=== PATIENT | female | born 1935 | race Caucasian/White ===

== ENCOUNTER → 2017-07-07 | Day surgery (SDC) | payer OTHER ==
[2017-06-30 08:41] VITALS: Ht 157.5 cm; Wt 50.0 kg
[~2017-07-07] VITALS: Ht 157.5 cm; Wt 50.0 kg
[~2017-07-07] MED LIST: 500ML BSS 0.3ML EPI 1:1000PF IRRIG ONE; ACETAMINOPHEN 325 MG TAB PO PRN; AMVISC PLUS 0.8ML SYRINGE INT OCU ONE; ASPI81TA28 PO; ATROPINE SULFATE 0.1 MG/ML 5ML SYR IV PRN; AcetaZOLAMIDE 250 MG TAB PO SCH; BETAXOLOL HCL 0.25% OP SUSP PER DROP CHARGE OPL SCH; BRIMONIDINE TART 0.2% OP SOLN PER DROP CHARGE ONE; BSS FLUSH ONE; CALC1TAB9 PO; ENDOCOAT 0.85ML SYRINGE INT OCU ONE; EpHEDrine SULFATE INJ 50 MG/ML AMP IV PRN; EpINEphrine INJ 1MG/ML AMP 1 MG/ML AMP ONE; FSMD/70 PO; LIDOCAINE 4% OP SOLN DROP CHARGE ONE; LIDOCAINE 4% OP SOLN DROP CHARGE OPL SCH; LIDOCAINE HCL 1% MPF 2 ML VIAL ONE; LOSA50TA6 PO; MIDAZOLAM HCL 1 MG/ML 2ML VIAL ONE; MIX: 4ML BSS 1ML EPI 1:1000 PF INSTIL ONE; MOXIFLOXACIN OPH SOLN PER DROP CHARGE ONE; MULT-506 PO; OCUCOAT 1 ML SOLN IO ONE; POVIDONE-IODINE OP SOLN 30 ML BTL ONE; PROPARACAINE 0.5% OP SOLN PER DROP CHARGE OPL SCH; ROSU20TA PO; TOBRAMYCIN/DEXAMETHASONE OPH OINT PER APPLN CHARGE ONE
[2017-07-07] MEDS: LACTATED RINGER'S 1000ML 500 ML IV SCH ×2 (09:14→09:29)
[2017-07-07] MEDS: PHENYLEPHRINE HCL 2.5% OP SOLN PER DROP CHARGE OPL SCH ×2 (09:16→09:18)
[2017-07-07] MEDS: TROPICAMIDE 1% OP SOLN PER DROP CHARGE OPL SCH ×2 (09:16→09:21)
[2017-07-07] MEDS: MOXIFLOXACIN OPH SOLN PER DROP CHARGE OPL SCH ×2 (09:17→09:28)
[2017-07-07] MEDS: CYCLOPENTOLATE HCL 1% OP SOLN PER DROP CHARGE OPL SCH ×2 (09:17→09:22)
--- NOTE | 2017-07-07 09:49 | History & Physical Bridge - [place] ---
H&P Re-Evaluation Bridge Note: I have examined the patient, reviewed the History & Physical and in the interval since the performance of the History & Physical I have noted the following changes of clinical significance: No changes noted
--- NOTE | 2017-07-07 10:06 | Discharge Instructions-SurgCtr ---
Discharge Instructions Date of Service Jul 07, 2017. Visit Reason for Visit: Left Cataract Discharge Discharge Diagnosis / Problem: lens implant left eye Discharge Goals Goal(s): Improve function Activity Recommendations Activity Limitations: resume your previous activity Lifting Limitations: no more than 10 pounds Exercise/Sports Limitations: gradually increase as tolerated May Resume Sexual Activity: when tolerated Shower/Bathe: tomorrow Driving or Machine Use: resume 1 day after discharge Anesthesia . Post Anesthesia Instructions: If you have had General Anesthesia or IV Sedation: * Do not drive today. * Resume driving when surgeon permits. * Do not make important decisions or sign legal documents today. * Call surgeon for: 1. Temperature elevations greater than 101 degrees F. 2. Uncontrollable pain. 3. Excessive bleeding. 4. Persistent nausea and vomiting. 5. Medication intolerance (nausea, vomiting or rash). * For nausea and vomiting use only clear liquids such as: tea, soda, bouillon until nausea subsides, then gradually increase diet as tolerated. * If you have any concerns or questions, call your surgeon's office. If physician is unavailable and it is an emergency, call 911 or go to the nearest emergency room. . Instructions / Follow-Up Instructions / Follow-Up ACTIVITY RECOMMENDATIONS: * Light activities. * Mild irritation and blurred vision are common for the first few days. * You may walk outside, read, watch television. * Redness around the white part of the eye is common. MEDICATIONS: Resume previous medications unless instructed otherwise by your surgeon. * Take white Diamox (Acetazolamide) tablet at 1 pm today. Start all eye drops at 1 pm today: * Eye drops (today and tomorrow): Prednisone - one drop in operative eye every 3 hours while awake Ofloxacin - one drop in operative eye every 3 hours while awake SPECIAL CARE INSTRUCTIONS: * Tape plastic shield over eye to sleep at night. Call your doctor at with any concerns or problems. FOLLOW UP VISIT: Follow-up with Dr Wise at [facility] office as scheduled. Diet Recommendations Home Diet: no limitations Procedures Procedures Performed: cataract extraction with lens implant Pending Studies Studies pending at discharge: no Medical Emergencies . Who to Call and When: Medical Emergencies: If at any time you feel your situation is an emergency, please call 911 immediately. . Non-Emergent Contact Non-Emergency issues call your: Turbine Inspector Call Non-Emergent contact if: your pain is not controlled [phone] . . "Provider Documentation" section prepared by Tiburcio Wise. .
--- NOTE | 2017-07-07 10:08 | [facility] Operative Report ---
Operative Report Date of Service Jul 07, 2017. Operative Report 1. PREOPERATIVE DIAGNOSIS: Senile nuclear cataract, left eye. 2. POSTOPERATIVE DIAGNOSIS: Senile nuclear cataract, left eye. 3. PROCEDURE: Phacoemulsification of left cataract with posterior chamber lens implant, type [employer]ch [employer], model MX60, power +20.5 diopters. ANESTHESIA: Local standby. SURGEON: Dr. Wise. COMPLICATIONS: None. OPERATING TIME: 10 minutes. 4. OPERATION AND FINDINGS: DESCRIPTION OF PROCEDURE: The left pupil was dilated. The anesthetic was administered using a topical technique. The left eye was prepped and draped. A speculum was placed. A clear corneal incision was formed. The chamber was filled with Amvisc Plus and Endocoat. Epinephrine solution was used. A paracentesis was placed. A capsulorrhexis was performed. The nucleus was hydrodissected. A dense lens was removed with phacoemulsification. Time was 6.61 seconds. The aspiration unit was used to remove the cortex. The capsule was filled with Amvisc Plus. The lens implant was folded and placed into the capsule. The incision was hydrated. The Amvisc was aspirated. The wound was secure. The chamber was deep. The pupil was round. Brimonidine, TobraDex ointment and Vigamox solution were placed. The speculum was removed. The patient was returned to the Recovery Room in stable condition. I attest to the content of the Intraoperative Record and any orders documented therein. Any exceptions are noted below. The scribe's documentation has been prepared in my presence, under my direction and personally reviewed by me in its entirety. I confirm that the note above accurately reflects all work, treatment, procedures, and medical decision making performed by me. I personally scribed for Tiburcio Wise M.D. ([email or web address]) on 07/07/17 at 10:08. Electronically submitted by Eli Gross (TEO).
[2017-07-07 10:10] VITALS: TEMP 36.3
--- NOTE | 2017-07-07 10:17 | Anesthesia Progress Nt - [facility] ---
Anesthesia Post Op Note Date & Time Jul 07, 2017 at 10:17 Vital Signs Pain Intensity: 0 Vital Signs Past 12 Hours Date Time Temp Pulse Resp B/P (MAP) Pulse Ox O2 Delivery O2 Flow Rate FiO2 07/07/17 10:10 36.3 66 16 139/83 (101) 99 Room Air 07/07/17 09:11 36.4 68 18 158/84 (108) 98 Room Air Notes Mental Status: alert / awake / arousable, participated in evaluation Pt Amnestic to Procedure: Yes Nausea / Vomiting: adequately controlled Pain: adequately controlled Airway Patency, RR, SpO2: stable & adequate BP & HR: stable & adequate Hydration State: stable & adequate Anesthetic Complications: no major complications apparent
[2017-07-07 10:34] VITALS: BP 131/71; PULSE 68; O2SAT 98
== END | disposition home or self-care (01) ==
LOC: X.SURG 08:55
PROVIDERS: ATTEND Specialist
DX: H25.12 Age-related nuclear cataract, left eye (principal); Z79.82 Long term (current) use of aspirin; Z79.899 Other long term (current) drug therapy

== ENCOUNTER 2023-07-01 11:42 | Inpatient (IN) ==
--- NOTE | 2023-07-01 12:04 | Emergency Department Note ---
Impression & Plan Unable to care for self ED Provider Note CHIEF COMPLAINT: Weakness HISTORY OF PRESENT ILLNESS: This 87-year-old female patient past medical history of hypertension, dementia presents to the emergency department with her daughter and granddaughter stating she has been declining over the last several weeks. They have presented to an outside emergency department multiple times. 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 Patient has not fallen to their knowledge however is not eating, not showering. She does live at home by herself with family close by. This time family states they are unable to care for the patient adequately. REVIEW OF SYSTEMS: Patient answers most questions however reliability is in question. Much of the history is obtained from the daughter and granddaughter at the bedside. ALLERGIES: see below MEDICATIONS: see below PMH: see below SOCIAL HISTORY: see below DDx: Dehydration, infectious etiology such as UTI, pneumonia, viral etiology, acute myocardial infarction, acute renal injury, intracranial hemorrhage, stroke, intracranial mass among others. PHYSICAL EXAM: Vital signs reviewed. General: Elderly appearing 87-year-old female, in no significant distress. HEENT: No scleral icterus, PERRLA, neck supple. Atraumatic. Cardiovascular: Regular rate and rhythm, no extra sounds. Pulmonary: Clear to auscultation bilaterally, normal work of breathing. Abdomen: Soft, nontender, nondistended, positive bowel sounds. Musculoskeletal: Atraumatic, no peripheral edema. Neurologic: Patient somnolent but awake, does respond to verbal stimuli. Follows simple directions. Speech is clear. Skin: Warm, dry, no rash EXTERNAL medical records reviewed, multiple ED visit notes [facility] over May/June. Imaging studies including CT scan of the head EMERGENCY DEPARTMENT COURSE/MDM: This patient was evaluated and appeared to be in no significant distress. IV access was obtained and laboratory work was drawn. The patient was placed on the color television console monitor noted to be in normal sinus rhythm. Chest x-ray was performed and reveals interstitial opacities bilaterally. Laboratory work is fairly reassuring, UA is negative. I did speak with the patient's family as well as case management regarding her home situation difficulties coming up with a plan despite multiple visits to the outside hospital. Family does not feel that they are able to pursue detention placement while adequately managing the patient's care at home. Patient's case was discussed with case management and the hospitalist service for admission and further management. MONITORING: An order for cardiac monitoring was placed and the patient is noted to be in a normal sinus rhythm at 87 beats per minute. RADIOLOGY: Chest x-ray to my interpretation reveals interstitial opacities bilaterally, otherwise defer to radiology over read. EKG: To my interpretation reveals a normal sinus rhythm at [address] segments. No PVC, no PAC. QTc is 408. Left atrial enlargement, no previous for comparison. DISPOSITION: Admission Past Med/Surg History Medical History (Updated 07/06/23 @ 06:05 by Mely Pop MD) TIA (transient ischemic attack) HTN (hypertension) Surgical History (Updated 07/01/23 @ 14:51 by Comfort Johnson PA-C) Hx of tonsillectomy Hx of cholecystectomy Hx of bladder repair surgery Hx of hysterectomy Social History (Updated 07/01/23 @ 14:52 by Comfort Johnson PA-C) Smoking Status: Former smoker Hx Alcohol Use: No Hx Substance Use: No Preferred Language: Vincentian Communication Ability: Effective Electrician Assistant Required: No Beliefs That Will Affect Care: None Current Living Situation: Alone Other Information That Helps Us Care for You: No Feels Safe at Home: Yes Safety Concerns: Feels Safe At This Time Assistive Devices: Walker Assistive Devices Comment: Patient only has her dentures Allergies Allergies Allergy/AdvReac Type Severity Reaction Status Date / Time No Known Allergies Allergy Unverified 07/07/17 09:09 Home Meds Home Medications Medication Instructions Recorded Confirmed alendronate 70 mg tablet 70 mg PO DILL 07/01/23 07/01/23 aspirin 81 mg tablet,delayed 81 mg PO DAILY 07/01/23 07/01/23 release calcium citrate 200 mg (950 mg) 200 mg PO DAILY 07/01/23 07/01/23 tablet dextran 70-hypromellose (PF) 0.1 1 drp ophthalmic (eye) HS 07/01/23 07/01/23 %-0.3 % eye drops in a dropperette (Artificial Tears (PF)) losartan 50 mg tablet 50 mg PO DAILY 07/01/23 07/01/23 multivitamin 1 tab PO DAILY 07/01/23 07/01/23 Results & Data (ED) Vital Signs Vital Signs - 24 hr 07/01/23 11:47 07/01/23 11:47 Temperature 37.2 C Temperature Source Oral Pulse Rate 91 H Respiratory Rate 18 Respiratory Effort / Characteristics Non-Labored Spontaneous Respiratory Depth Normal Respiratory Pattern Regular Blood Pressure 162/80 H Blood Pressure Mean 107 Pulse Oximetry 97 97 Oxygen Delivery Method Room Air Room Air Oxygen Flow Rate 0 Sepsis Recent Fever Within 48 Hours No Sepsis New/Unexplained Change in Mental Status N/A Sepsis Action Taken by Nursing No Action Required Oxygen Flow Rate - Titration 0 Home Medications Current Medication List: was personally reviewed by me Laboratory Data Attestation: I reviewed the patient's lab results. 07/04/23 05:44 07/04/23 05:44 Lab Results 07/01/23 07/01/23 07/01/23 Range/Units 11:52 12:33 14:10 WBC 11.76 H (4.8-10.8) K/ul RBC 4.78 (4.20-5.40) M/uL Hgb 13.4 (12.0-16.0) g/dl Hct 40.0 (37.0-47.0) % MCV 83.7 (80.0-100.0) fL MCH 28.0 (25.0-34.0) pg MCHC 33.5 (32.0-36.0) g/dL RDW Std Deviation 46.5 H (36.4-46.3) fL RDW Coeff of Gordy 15.3 H (11.5-14.5) % Plt Count 380 (130-400) K/uL MPV 11.5 (9.4-12.4) fL Immature Gran % (Auto) 0.4 % Neut % (Auto) 78.1 % Lymph % (Auto) 9.9 % [place] % (Auto) 4.8 % Eos % (Auto) 6.5 % Baso % (Auto) 0.3 % Neut # (Auto) 9.17 H (1.40-6.50) K/uL Lymph # (Auto) 1.17 L (1.20-3.40) K/uL [place] # (Auto) 0.57 (0.11-0.59) K/uL Eos # (Auto) 0.76 H (0.00-0.50) K/uL Baso # (Auto) 0.04 (0.00-0.20) K/uL Immature Gran # (Auto) 0.05 (0.01-0.20) K/uL Sodium 140 (136-145) mmol/L Potassium 3.2 L (3.5-5.1) mmol/L Chloride 103 (98-107) mmol/L Carbon Dioxide 27 (21-32) mmol/L Anion Gap 10 (3-11) BUN 26 H (6-23) mg/dl Creatinine 0.81 (0.6-1.2) mg/dl Est Cr Clr Drug Dosing 36.5 ml/min Est GFR ( Amer) 75.2 ml/min Est GFR (Non-Af Amer) 64.8 ml/min BUN/Creatinine Ratio 32.1 H (10-20) Glucose 96 (70-99(Fasting)) mg/dl Calcium 9.8 (8.6-10.3) mg/dl Magnesium 1.9 (1.7-2.4) mg/dl Total Bilirubin 0.5 (0.2-1.0) mg/dl AST 22 (13-39) U/L ALT 29 (7-52) U/L Alkaline Phosphatase 172 H (34-104) U/L Total Protein 7.5 (6.0-8.3) gm/dl Albumin 3.5 (3.4-5.0) gm/dl Globulin 4.0 (2.5-4.0) gm/dl Albumin/Globulin Ratio 0.9 (0.9-2) Vitamin B12 Cancelled Folate Cancelled TSH 1.143 (0.300-4.500) uIu/ml Urine Color Yellow Urine Appearance Clear (Clear) Urine pH 5.0 (4.5-7.5) Ur Specific [place] 1.021 (1.000-1.030) Urine Protein 2+ H (Negative) Urine Glucose (UA) Negative (Negative) Urine Ketones 1+ H (Negative) Urine Blood 2+ H (Negative) Urine Nitrite Negative (Negative) Urine Bilirubin Negative (Negative) Urine Urobilinogen Negative (Negative) Ur Leukocyte Esterase Negative (Negative) Urine WBC (Auto) 5-10 H (0-5) /hpf Urine RBC (Auto) 0-4 (0-4) /hpf U Hyaline Cast (Auto) 1-5 (0-5) /lpf U Epithel Cells (Auto) 20-30 H (0-5) /lpf Urine Bacteria (Auto) Negative (Negative) Amorphous Sediment Present A (None Prsent) Urine Yeast Not Reportable Adenovirus (PCR) Not Detected (NotDetected) B. pertussis DNA (PCR) Not Detected (NotDetected) B.parapertussis DNA PCR Not Detected (NotDetected) C. pneumoniae DNA (PCR) Not Detected (NotDetected) Coronavirus OC43 (PCR) Not Detected (NotDetected) Coronavirus HKU1 (PCR) Not Detected (NotDetected) Coronavirus 229E (PCR) Not Detected (NotDetected) SARS-CoV-2 (PCR) Not Detected (NotDetected) Coronavirus NL63 (PCR) Not Detected (NotDetected) Human Metapneumovir PCR Not Detected (NotDetected) Influenza Type A (PCR) Not Detected (NotDetected) Influenza Type B (PCR) Not Detected (NotDetected) M. pneumoniae (PCR) Not Detected (NotDetected) Parainfluenza 1 (PCR) Not Detected (NotDetected) Parainfluenza 2 (PCR) Not Detected (NotDetected) Parainfluenza 3 (PCR) Not Detected (NotDetected) Parainfluenza 4 (PCR) Not Detected (NotDetected) RSV (PCR) Not Detected (NotDetected) Entero/Rhino (PCR) Not Detected (NotDetected) Miscellaneous Test REPORT Administered Medications Acetaminophen (Acetaminophen 325 Mg Tab) 650 mg PO Q4H PRN PRN Reason: pain/fever Stop: 07/31/23 17:29 Last Admin: 07/02/23 04:11 Dose: 650 mg Documented By: TONG Artificial Tears (Artificial Tears) 1 drops OP HS MALU Stop: 07/31/23 20:59 Last Admin: 07/05/23 21:48 Dose: 1 drops Documented By: Admin: 07/04/23 20:51 Dose: 1 drops Documented By: Admin: 07/03/23 20:02 Dose: 1 drops Documented By: Admin: 07/02/23 19:53 Dose: 1 drops Documented By: Admin: 07/01/23 20:43 Dose: Not Given Documented By: TONG Aspirin (Aspirin 81 Mg Ectab) 81 mg PO DAILY MALU Stop: 08/01/23 08:59 Last Admin: 07/05/23 09:17 Dose: 81 mg Documented By: Admin: 07/04/23 07:58 Dose: 81 mg Documented By: Admin: 07/03/23 08:54 Dose: 81 mg Documented By: Admin: 07/02/23 08:57 Dose: 81 mg Documented By: PACO Calcium/Vitamin D (Calcium 600mg + Vit D 400 Iu Tab) 1 tab PO DAILY MALU Stop: 08/01/23 08:59 Last Admin: 07/05/23 09:17 Dose: 1 tab Documented By: Admin: 07/04/23 07:58 Dose: 1 tab Documented By: Admin: 07/03/23 08:54 Dose: 1 tab Documented By: Admin: 07/02/23 08:57 Dose: 1 tab Documented By: PACO Docusate Sodium (Docusate Sodium 100 Mg Cap) 100 mg PO BID MALU Stop: 07/31/23 20:59 Last Admin: 07/05/23 21:47 Dose: 100 mg Documented By: Admin: 07/05/23 09:22 Dose: Not Given Documented By: Admin: 07/04/23 20:51 Dose: 100 mg Documented By: Admin: 07/04/23 07:58 Dose: 100 mg Documented By: Admin: 07/03/23 20:03 Dose: 100 mg Documented By: Admin: 07/03/23 08:54 Dose: 100 mg Documented By: Admin: 07/02/23 19:53 Dose: 100 mg Documented By: Admin: 07/02/23 08:56 Dose: 100 mg Documented By: Admin: 07/01/23 20:43 Dose: 100 mg Documented By: TONG Heparin Sodium (Porcine) (Heparin Sod 5,000 Unit/0.5 Ml Vial) 5,000 units SQ Q12 MALU Stop: 07/31/23 20:59 Last Admin: 07/05/23 21:48 Dose: 5,000 units Documented By: Admin: 07/05/23 09:17 Dose: 5,000 units Documented By: Admin: 07/04/23 20:51 Dose: 5,000 units Documented By: Admin: 07/04/23 07:59 Dose: 5,000 units Documented By: Admin: 07/03/23 20:03 Dose: 5,000 units Documented By: Admin: 07/03/23 08:54 Dose: 5,000 units Documented By: Admin: 07/02/23 19:53 Dose: 5,000 units Documented By: Admin: 07/02/23 08:57 Dose: 5,000 units Documented By: Admin: 07/01/23 20:43 Dose: 5,000 units Documented By: TONG Losartan Potassium (Losartan Potassium 50 Mg Tab) 50 mg PO DAILY MALU Stop: 08/01/23 08:59 Last Admin: 07/05/23 09:17 Dose: 50 mg Documented By: Admin: 07/04/23 07:58 Dose: 50 mg Documented By: Admin: 07/03/23 08:54 Dose: 50 mg Documented By: Admin: 07/02/23 08:57 Dose: 50 mg Documented By: PACO Multivitamins (Multivitamin Tab) 1 tab PO QAM MALU Stop: 08/01/23 08:59 Last Admin: 07/05/23 09:17 Dose: 1 tab Documented By: Admin: 07/04/23 07:59 Dose: 1 tab Documented By: Admin: 07/03/23 08:54 Dose: 1 tab Documented By: Admin: 07/02/23 08:57 Dose: 1 tab Documented By: PACO Discontinued Medications Gadobutrol (Gadobutrol 65ml Vial) 4.8 ml IV ONCE ONE Stop: 07/01/23 19:35 Last Admin: 07/01/23 19:35 Dose: 4.8 ml Documented By: MILY Sodium Chloride (Nss) 500 mls @ 999 mls/hr IV .Q31M ONE Stop: 07/01/23 14:27 Last Infusion: 07/01/23 16:21 Dose: Infused Documented By: Admin: 07/01/23 14:14 Dose: 999 mls/hr Documented By: DANNIE Potassium Chloride (K Ryan / Wtr) 10 meq in 100 mls @ 100 mls/hr IV Q1H MALU Stop: 07/01/23 15:59 Last Infusion: 07/01/23 16:21 Dose: Infused Documented By: Admin: 07/01/23 15:21 Dose: 100 mls/hr Documented By: Infusion: 07/01/23 15:13 Dose: Infused Documented By: Admin: 07/01/23 14:13 Dose: 100 mls/hr Documented By: DANNIE Potassium Chloride/Sodium Chloride (Normal Saline W/20 Meq Kcl) 20 meq in 1,000 mls @ 60 mls/hr IV .[id number] MALU; Protocol Stop: 07/02/23 10:39 Last Infusion: 07/02/23 11:37 Dose: Infused Documented By: Infusion: 07/02/23 04:55 Dose: 60 mls/hr Documented By: Infusion: 07/02/23 04:35 Dose: 0 mls/hr Documented By: Admin: 07/01/23 18:30 Dose: 60 mls/hr Documented By: VASHTI Ioversol (Optiray 320 100ml) 89 ml IV ONCE ONE Stop: 07/01/23 17:00 Last Admin: 07/01/23 17:00 Dose: 89 ml Documented By: CHARLINE Potassium Chloride (Potassium Chloride Crtab 20 Meq Tabcr) 20 meq PO NOW STA Stop: 07/02/23 07:40 Last Admin: 07/02/23 08:56 Dose: 20 meq Documented By: PACO Imaging Data Radiologist's Impression: Chest X-Ray 07/01/23 12:25 XR chest 1V portable CLINICAL HISTORY: weakness TECHNIQUE: Single frontal radiograph of the chest was obtained. Comparison: None available at the time of this dictation. FINDINGS: No lines and tubes are seen. Calcified aortic knob is seen. Reticular interstitial opacities are seen. Radiodensities are seen in the bilateral lung bases. No evidence of pleural effusion or pneumothorax. IMPRESSION: Interstitial opacities are seen. Atelectasis without evidence of aspiration/pneumonia. ACT 112: Negative or not required by law. Electronically signed by: Osvaldo Romo M.D. 07/01/2023 1:15 PM Discharge Plan Visit Data Chief Complaint: Weakness ED Provider: Mely Pop Discharge Problem: Unable to care for self Patient Disposition: Admitted As Inpatient Discharge Instructions Interventions: ED Discharge Assessment Last Done: 07/01/23 16:31
--- NOTE | 2023-07-01 13:16 | XRay Report ---
XR chest 1V portable CLINICAL HISTORY: weakness TECHNIQUE: Single frontal radiograph of the chest was obtained. Comparison: None available at the time of this dictation. FINDINGS: No lines and tubes are seen. Calcified aortic knob is seen. Reticular interstitial opacities are seen . Radiodensities are seen in the bilateral lung bases. No evidence of pleural effusion or pneumothora x. IMPRESSION: Interstitial opacities are seen. Atelectasis without evidence of aspiration/pneumonia. ACT 112: Negative or not required by law. Electronically signed by: Osvaldo Romo M.D. 07/01/2023 1:15 PM
[2023-07-01 13:34] LABS: Basophils # (auto) 0.04 K/uL (0.00-0.20); Basophils % (auto) 0.3 %; Eosinophils # (auto) 0.76 K/uL (0.00-0.50); Eosinophils % (auto) 6.5 %; Hemoglobin 13.4 g/dl (12.0-16.0); Immature Granulocytes # (auto) 0.05 K/uL (0.01-0.20); Immature Granulocytes % (auto) 0.4 %; Lymphocytes # (auto) 1.17 K/uL (1.20-3.40); Lymphocytes % (auto) 9.9 %; Mean Corpuscular Hgb Conc 33.5 g/dL (32.0-36.0); Mean Corpuscular Volume 83.7 fL (80.0-100.0); Mean Platelet Volume 11.5 fL (9.4-12.4); Monocytes # (auto) 0.57 K/uL (0.11-0.59); Monocytes % (auto) 4.8 %; Neutrophils # (auto) 9.17 K/uL (1.40-6.50); Neutrophils % (auto) 78.1 %; Platelet Count 380 K/uL (130-400); RDW Coefficient of Variation 15.3 % (11.5-14.5); RDW Standard Deviation 46.5 fL (36.4-46.3); Red Blood Count 4.78 M/uL (4.20-5.40); White Blood Count 11.76 K/ul (4.8-10.8)
[2023-07-01 13:50] LABS: Albumin Globulin Ratio 0.9 (0.9-2); Albumin Level 3.5 gm/dl (3.4-5.0); BUN Creatinine Ratio 32.1 (10-20); Bilirubin,Total 0.5 mg/dl (0.2-1.0); Calcium 9.8 mg/dl (8.6-10.3); Creatinine Clr Calc Pharmacy 36.5 ml/min; Est GFR (African American) 75.2 ml/min; Est GFR (Non-African American) 64.8 ml/min; Magnesium 1.9 mg/dl (1.7-2.4); Potassium 3.2 mmol/L (3.5-5.1); Total Protein 7.5 gm/dl (6.0-8.3)
[2023-07-01] MEDS ORDERED: SODIUM CHLORIDE 0.9% 500 ML IV ONE (13:57)
[2023-07-01 13:59] LABS: Adenovirus PCR Not Detected (NotDetected); Bordetella parapertussis PCR Not Detected (NotDetected); Bordetella pertussis PCR Not Detected (NotDetected); Chlamydia pneumoniae PCR Not Detected (NotDetected); Coronavirus 229E PCR Not Detected (NotDetected); Coronavirus CoV-2 (COVID19)PCR Not Detected (NotDetected); Coronavirus HKU1 PCR Not Detected (NotDetected); Coronavirus NL63 PCR Not Detected (NotDetected); Coronavirus OC43PCR Not Detected (NotDetected); Human Metapneumovirus PCR Not Detected (NotDetected); Influenza A PCR Not Detected (NotDetected); Influenza B PCR Not Detected (NotDetected); Mycoplasma pneumoniae PCR Not Detected (NotDetected); Parainfluenza Virus 1 PCR Not Detected (NotDetected); Parainfluenza Virus 2 PCR Not Detected (NotDetected); Parainfluenza Virus 3 PCR Not Detected (NotDetected); Parainfluenza Virus 4 PCR Not Detected (NotDetected); Respiratory Syncytial VirusPCR Not Detected (NotDetected); Rhinovirus/Enterovirus PCR Not Detected (NotDetected)
[2023-07-01 14:03] LABS: Thyroid Stimulating Hormone 1.143 uIu/ml (0.300-4.500)
[2023-07-01] MEDS: POTASSIUM CHLORIDE / WTR 10 MEQ/100 ML PLCT IV SCH ×2 (14:13→15:21)
[2023-07-01 14:35] LABS: Appearance Urine Clear (Clear); Bacteria Urine Automated Negative (Negative); Bilirubin Urine Negative (Negative); Blood Urine 2+ (Negative); Color Urine Yellow; Epithelial Cell Urine Auto 20-30 /lpf (0-5); Glucose Urine UA Negative (Negative); Ketones Urine 1+ (Negative); Leukocyte Esterase Urine Negative (Negative); Nitrite Urine Negative (Negative); Protein Urine 2+ (Negative); Specific Gravity Urine 1.021 (1.000-1.030); Urobilinogen Urine Negative (Negative)
[2023-07-01 15:01] LABS: Amorphous Sediment Urine Present (None Prsent); RBC Urine Automated 0-4 /hpf (0-4)
--- NOTE | 2023-07-01 15:37 | History & Physical Report ---
Date of Service July 01, 2023 Assessment & Plan (1) Generalized weakness: (2) Weight loss: (3) Confusion: Plan This is an 87-year-old female who has a significant past medical history of HTN, age-related osteoporosis, cerebellar ataxia, vertebrobasilar insufficiency, statin intolerance who presents to ED secondary to generalized weakness and lack of appetite x2 weeks. Patient follows with PCP at [facility], [place], [place]. Family at bedside states that they were told she had a pancreatic mass on head of pancreas approximately [address] scan. At that time she also had significantly elevated LFTs. Family states unhappy with care and wish to pursue further imaging regarding this, but nobody would. Patient also recently seen at [facility] 5 days ago, twice in 1 day, due to worsened progressive weakness, increased confusion and inability to care for self at home. Due to no significant abnormality found she was discharged home and told maybe she had a, "TIA." Currently patient lives alone with her cat, ambulates with a walker occasionally and has family close by. Knimgbws-[id number]-nem and granddaughter at bedside elicit patient does have underlying dementia which is worsening and she is unable to care for self at home. Family is interested in placement. They further report approximately 20 pound weight loss in the last 1 month. They are also interested in pursuing further work-up regarding this, "pancreatic mass as well as requesting an MRI of brain to rule out possible stroke." Generalized weakness Weight loss with early satiety, unintentional, 20 pounds in the last month Per family diagnosis of dementia, worsening Admit to med telemetry Given the reported worsening dementia will obtain MRI brain to rule out CVA no neurological deficit on exam, but generalized weakness noted obtain CT chest w/o contrast Obtain CT abd/pelvis with contrast to eval for ? pancreatic head mass gentle IVF x 1 L blood cultures r/o infectious process Hypokalemia replete, follow in am. Dehydration, clinically will give additional 1L of IVF + KCl encourage liquids HTN chronic, stable continue losartan Chronic dizziness/vertigo vertebral basilar insufficiency on asa, add prn meclizine statin in tolerant DVT ppx: SQ Heparin DNR/DNI Dispo: admit to med tele for further medical r/o of weight loss, weakness, progression of dementia, obtain PT/OT consults, ultimately family wishes to pursue SNF Placement PCP: [facility], [place] Pt was seen and examined in collaboration with Dr. Lunsford, please see addendum Daughter in Law Odalis pereira for updates regarding medical status, History of Present Illness Chief Complaint: Generalized weakness and lack of appetite x2 weeks Primary Care Provider: Ruthann Myers This is an 87-year-old female who has a significant past medical history of HTN, age-related osteoporosis, cerebellar ataxia, vertebrobasilar insufficiency, statin intolerance who presents to ED secondary to generalized weakness and lack of appetite x2 weeks. Dsaapkwy-zt-wvy and granddaughter are at bedside who help elicit history. They state that patient has underlying dementia. When asked orientation questions patient was alert and oriented x4. Family states that patient's PCP is an independent provider in [place]. Approximately 2 years ago she underwent a CAT scan of her abdomen pelvis which revealed a pancreatic mass. Family states they are unhappy with her care as have been trying to get an MRI and nobody will order. They also state over the last 2 to 3 weeks that she has had a significant decline in her mobility and when they found her this morning they were unable to get her out of bed. On Wednesday of this past week they took her to [facility] ER twice due to worsening weakness, mental status and overall lack of appetite. Per family members work-up reportedly unremarkable and despite hoping patient would be admitted to hospital she was discharged to home. Family is having difficult time caring for patient at home and they are interested in pursuing placement. They are also interested in pursuing further information regarding mass of pancreatic head as patient's mother is of pancreatic cancer in her 80s. They are also requesting MRI of brain to rule out that she has not had a stroke in the last several weeks due to the significant mental and physical decline. Patient states she is always chilled and occasionally feels sweaty, she has chronic dizziness in setting of vertigo, overall lack of appetite, 20 pound weight loss in the last 4 weeks, early satiety and generalized weakness, aches and pains. Approximately 1 week ago she did complete a course of oral cefdinir for a diagnosed UTI. She completed this in its entirety. She denies any documented fever, lightheadedness, syncope, chest pain, cough, nausea, vomiting, abdominal pain, dysuria, increased urgency or frequency with urination, melena or medic easier. She states her last bowel movement was approximately 1 week ago. At baseline patient lives alone and does ambulate with a walker occasionally. She does have family members close by who check on her regularly. In ED patient remained hemodynamically stable. Lab work notable for mild hypokalemia which has been repleted. She also appears to be dehydrated and was started on some IV fluid. Her BioFire panel was negative. Allergies Allergy/AdvReac Type Severity Reaction Status Date / Time No Known Allergies Allergy Unverified 07/07/17 09:09 Home Medications Medication Instructions Recorded Confirmed Type alendronate 70 mg tablet 70 mg PO DILL 07/01/23 07/01/23 History aspirin 81 mg tablet,delayed 81 mg PO DAILY 07/01/23 07/01/23 History release calcium citrate 200 mg (950 mg) 200 mg PO DAILY 07/01/23 07/01/23 History tablet dextran 70-hypromellose (PF) 0.1 1 drp ophthalmic (eye) HS 07/01/23 07/01/23 History %-0.3 % eye drops in a dropperette (Artificial Tears (PF)) losartan 50 mg tablet 50 mg PO DAILY 07/01/23 07/01/23 History multivitamin 1 tab PO DAILY 07/01/23 07/01/23 History Past Med/Surg History Medical History (Updated 07/01/23 @ 15:43 by Comfort Johnson PA-C) TIA (transient ischemic attack) HTN (hypertension) Surgical History (Updated 07/01/23 @ 14:51 by Comfort Johnson PA-C) Hx of tonsillectomy Hx of cholecystectomy Hx of bladder repair surgery Hx of hysterectomy Social History (Updated 07/01/23 @ 14:52 by Comfort Johnson PA-C) Smoking Status: Former smoker Hx Alcohol Use: No Preferred Language: Montenegrin Current Living Situation: Alone Feels Safe at Home: Yes Review of Systems Review of Systems: All systems reviewed & are unremarkable except as noted in HPI & below Physical Exam Physical Exam: Constitutional: thin, petite, fraile, vitals as above, NAD, sitting up in bed, pleasant, keeps eyes closed and answers quest approp Head: Normocephalic, Atraumatic Eyes: PERRL, conjunctivae normal, anicteric sclerae ENMT: external ear and nose normal, oropharynx normal dry membranes Neck: trachea midline, no thyromegaly normal visual inspection Respiratory: normal respiratory effort, lungs clear to auscultation, no wheeze, rales, rhonchi. Normal insp/exp effort, no accessory muscle use Cardiovascular: RRR, no murmur, no edema, mild venous insuff changes Vessels: no JVD or carotid bruit Chest: normal inspection of chest Abdomen: normal bowel sounds, soft, nontender, no hepatosplenomegaly Musculoskeletal: no cyanosis or clubbing, extremities motor strength 4/5 Skin: no rashes, warm and dry normal turgor Neurologic: PERRL, EOMI, accommodation nl, no face palsy, no dysarthria CN's II-XI intact bilaterally and moves all extremities Psychiatric: A+Ox3, euthymic affect Lymphatic: no cervical or axillary lymphadenopathy : deferred Results & Data Results & Data Vital Signs (Past 12 Hours) Vital Signs Temp Pulse Resp BP Pulse Ox O2 Del Method O2 Flow Rate 07/01/23 12:39 98 Room Air 0 07/01/23 12:05 87 07/01/23 12:02 85 20 96 Room Air 07/01/23 11:47 97 Room Air 0 07/01/23 11:47 37.2 C 91 H 18 162/80 H 97 Room Air Diagnostic Findings Chest X-Ray 07/01/23 12:25 XR chest 1V portable CLINICAL HISTORY: weakness TECHNIQUE: Single frontal radiograph of the chest was obtained. Comparison: None available at the time of this dictation. FINDINGS: No lines and tubes are seen. Calcified aortic knob is seen. Reticular interstitial opacities are seen. Radiodensities are seen in the bilateral lung bases. No evidence of pleural effusion or pneumothorax. IMPRESSION: Interstitial opacities are seen. Atelectasis without evidence of aspiration/pneumonia. ACT 112: Negative or not required by law. Electronically signed by: Osvaldo Romo M.D. 07/01/2023 1:15 PM Medications Administered Medication List Potassium Chloride (K Ryan / Wtr) 10 meq in 100 mls @ 100 mls/hr IV Q1H MALU Stop: 07/01/23 15:59 Last Admin: 07/01/23 15:21 Dose: 100 mls/hr Documented By: Infusion: 07/01/23 15:13 Dose: Infused Documented By: Admin: 07/01/23 14:13 Dose: 100 mls/hr Documented By: DANNIE Discontinued Medications Sodium Chloride (Nss) 500 mls @ 999 mls/hr IV .Q31M ONE Stop: 07/01/23 14:27 Last Admin: 07/01/23 14:14 Dose: 999 mls/hr Documented By: DANNIE ECG Rate (beats per minute): 88 Rhythm: normal sinus COVID-19 Results Results COVID-19 Adm Lab Results: RBC 4.78 M/uL (4.20-5.40) 07/01/23 WBC 11.76 K/ul (4.8-10.8) H 07/01/23 Hgb 13.4 g/dl (12.0-16.0) 07/01/23 Hct 40.0 % (37.0-47.0) 07/01/23 Plt Count 380 K/uL (130-400) 07/01/23 Neutrophils (%) (Auto) 78.1 % 07/01/23 Lymphocytes (%) (Auto) 9.9 % 07/01/23 Monocytes # (Auto) 0.57 K/uL (0.11-0.59) 07/01/23 Eosinophils # (Auto) 0.76 K/uL (0.00-0.50) H 07/01/23 Immature Granulocyte % (Auto) 0.4 % 07/01/23 Neutrophils # (Auto) 9.17 K/uL (1.40-6.50) H 07/01/23 Lymphocytes # (Auto) 1.17 K/uL (1.20-3.40) L 07/01/23 Monocytes # (Auto) 0.57 K/uL (0.11-0.59) 07/01/23 Eosinophils # (Auto) 0.76 K/uL (0.00-0.50) H 07/01/23 Basophils # (Auto) 0.04 K/uL (0.00-0.20) 07/01/23 Immature Granulocyte # (Auto) 0.05 K/uL (0.01-0.20) 3 Na 140 mmol/L (136-145) 07/01/23 K 3.2 mmol/L (3.5-5.1) L 07/01/23 Cl 103 mmol/L (98-107) 07/01/23 CO2 27 mmol/L (21-32) 07/01/23 Anion Gap 10 (3-11) 07/01/23 BUN 26 mg/dl (6-23) H 07/01/23 Creatinine 0.81 mg/dl (0.6-1.2) 07/01/23 BUN/Creatinine Ratio 32.1 (10-20) H 07/01/23 Glucose Level 96 mg/dl (70-99(Fasting)) 07/01/23 Ca 9.8 mg/dl (8.6-10.3) 07/01/23 Total Bilirubin 0.5 mg/dl (0.2-1.0) 07/01/23 AST/SGOT 22 U/L (13-39) 07/01/23 ALT/SGPT 29 U/L (7-52) 07/01/23 Alkaline Phosphatase 172 U/L (34-104) H 07/01/23 Total Protein 7.5 gm/dl (6.0-8.3) 07/01/23 Albumin 3.5 gm/dl (3.4-5.0) 07/01/23 Globulin 4.0 gm/dl (2.5-4.0) 07/01/23 Albumin/Globulin Ratio 0.9 (0.9-2) 07/01/23 Adenovirus (PCR) Not Detected (NotDetected) 07/01/23 B. parapertussis DNA (PCR) Not Detected (NotDetected) 05/15 B. pertussis DNA (PCR) Not Detected (NotDetected) 07/01/23 C. pneumoniae DNA (PCR) Not Detected (NotDetected) 3 Coronavirus Type OC43 (PCR) Not Detected (NotDetected) 05/15 Coronavirus Type HKU1 (PCR) Not Detected (NotDetected) 05/15 Coronavirus Type 229E (PCR) Not Detected (NotDetected) 05/15 COVID-19 PCR Not Detected (NotDetected) 07/01/23 Coronavirus Type NL63 (PCR) Not Detected (NotDetected) 05/15 Human Metapneumovirus (PCR) Not Detected (NotDetected) 05/15 Influenza Virus Type A (PCR) Not Detected (NotDetected) Influenza Virus Type B (PCR) Not Detected (NotDetected) M. pneumoniae (PCR) Not Detected (NotDetected) 07/01/23 Parainfluenza Type 1 (PCR) Not Detected (NotDetected) 05/15 Parainfluenza Type 2 (PCR) Not Detected (NotDetected) 05/15 Parainfluenza Type 3 (PCR) Not Detected (NotDetected) 05/15 Parainfluenza Type 4 (PCR) Not Detected (NotDetected) 05/15 RSV (PCR) Not Detected (NotDetected) 07/01/23 Enterovirus/Rhinovirus (PCR) Not Detected (NotDetected) Chest X-Ray 07/01/23 Code Status & VTE Plan Code Status DNR/DNI VTE Prophylaxis Plan VTE Prophylaxis will be ordered: Yes Supervising Physician Co-Signing Physician Notes Pt seen and examined by me, care coordinated w/ B. DEVON Johnson, pls refer to her note above for further detail. Pt is an 87 yo F who w/ hx of HTN, age-related osteoporosis, cerebellar ataxia, vertebrobasilar insufficiency, statin intolerance who presents to ED secondary to generalized weakness and lack of appetite x2 weeks. Per family hx of underlying dementia. When asked orientation questions patient was alert and oriented x4. Family states that patient's PCP is an independent provider in [place]. Approximately 2 years ago she underwent a CAT scan of her abdomen pelvis which revealed a pancreatic mass. Family states they are unhappy with her care/ no work-up done. They also state over the last 2 to 3 weeks that she has had a significant decline in her mobility and when they found her this morning they were unable to get her out of bed. On Wednesday of this past week they took her to [facility] ER twice due to worsening weakness, mental status and overall lack of appetite. Per family members work-up reportedly unremarkable and despite hoping patient would be admitted to hospital she was discharged to home. Family is having difficult time caring for patient at home and they are interested in pursuing placement. They are also interested in pursuing further information regarding mass of pancreatic head as patient's mother is of pancreatic cancer in her 80s. They are also requesting MRI of brain to rule out that she has not had a stroke in the last several weeks due to the significant mental and physical decline. Patient states she is always chilled and occasionally feels sweaty, she has chronic dizziness in setting of vertigo, overall lack of appetite, 20 pound weight loss in the last 4 weeks, early satiety and generalized weakness, aches and pains. Approximately 1 week ago she did complete a course of oral cefdinir for a diagnosed UTI. She completed this in its entirety. Pt is laying in bed in NAD. keeps her eyes closed for the most part. Says she never felt this bad/ sick but she can't tell me exactly what is bothering her. Says she has pain with deep inspiration. Feeling very tired and cold. Lungs are CTAB. Heart sounds regular. Abdomen soft, nontender, nondistended. Moves extremities. Skin is warm and dry. Will obtain outside medical records for review. Will obtain imaging studies - ct abd - to eval reported pancr. mass, weight loss, no appetite, early satiety, CT chest - as pt reports pain w/ inspiration, blood cult. to r/o infectious etiology. mri brain - as per family - increased weakness and confusion. Cont. to closely monitor. pt will likely need placement - will obtain PT/OT and CM consult. MD Jonn
[2023-07-01] MEDS ORDERED: OPTIRAY 320 100ml IV ONE (16:59)
[2023-07-01] MEDS ORDERED: ACETAMINOPHEN 325 MG TAB PO PRN (17:30)
[2023-07-01] MEDS ORDERED: MAGNESIUM HYDROXIDE SUSP 30 ML UDC PO PRN (17:30)
[2023-07-01] MEDS ORDERED: MECLIZINE HCL 25 MG TAB PO PRN (17:30)
[2023-07-01] MEDS ORDERED: POLYETHYLENE (MIRALAX) 17 GM PACK PO PRN (17:30)
[2023-07-01] MEDS ORDERED: ONDANSETRON INJ 2 MG/ML 2 ML VIAL IV PRN (17:30)
[2023-07-01] MEDS ORDERED: ALUMINUM/MAGNESIUM SUSP 30 ML UDC PO PRN (17:30)
[2023-07-01] MEDS ORDERED: NSS + 20MEQ KCL 20 MEQ/1,000 ML BAG IV SCH (18:00)
--- NOTE | 2023-07-01 19:18 | CT Scan Report ---
CT chest diagnostic wo con CLINICAL HISTORY: pain, sob TECHNIQUE: Multidetector row helical CT of the chest was performed. Coronal and sagittal reformations were obtained. Automated dose lowering techniques and/or adjustment according to patient size were u tilized for this exam. Comparison: None available at the time of this dictation. FINDINGS: Lungs and pleura: Bronchiectasis and interstitial scarring are seen. There is a 4 mm nodule in the ri ght lower lobe (series 4 image 132). Trace pleural fluid is noted. Heart and pericardium: Heart size is normal. No pericardial effusion. Vessels: Mild atherosclerotic changes in the aorta and coronary arteries. Mediastinum and tremayne: Subcentimeter lymph nodes are seen. Chest wall and lower neck: Unremarkable. Abdomen: For findings below the diaphragm, please refer to CT of the abdomen dated the same. Bones: Degenerative changes in the thoracic spine. IMPRESSION: Bronchiectasis and interstitial fibrotic changes are seen. There is trace bilateral pleural effusions . Tiny pulmonary nodules as above. ACT 112: Negative or not required by law. Electronically signed by: Osvaldo Romo M.D. 07/01/2023 7:16 PM
[2023-07-01] MEDS ORDERED: GADOBUTROL 65ML VIAL IV ONE (19:34)
--- NOTE | 2023-07-01 19:51 | CT Scan Report ---
CT abd pelvis IV con only CLINICAL HISTORY: eval for pancreatic mass TECHNIQUE: Helical axial images of the abdomen and pelvis were obtained and displayed. Automated dose lowering techniques and/or adjustment according to patient size were utilized for this exam. This e xam was performed with intravenous contrast. CT DOSE: 591.85 mGy.cm COMPARISON: None available at the time of this dictation. FINDINGS: Lower chest: For findings above the diaphragm, please see CT chest performed same day. Liver: Unremarkable. No focal lesions are seen. Gallbladder and biliary tree: Patient is status post cholecystectomy. Physiologic prominence of the b iliary ducts is noted. Pancreas: Unremarkable, no focal lesions. Pancreatic duct measures up to 4 mm of the body. Spleen: Unremarkable. Adrenals: Unremarkable. Kidneys and ureters: Subcentimeter hypodensities are too small to characterize. Bladder: Unremarkable. Reproductive organs: Unremarkable. Bowel: Diverticulosis is seen without diverticulitis. The appendix is normal. Lymph nodes Retroperitoneal: Unremarkable. Pelvic: Unremarkable. Mesenteric: Unremarkable. Peritoneum: Normal. Vessels: Atherosclerotic calcifications are seen. Abdominal wall: Unremarkable. Bones: Unremarkable. IMPRESSION: 1. No CT evidence of pancreatic mass. No acute abnormalities are seen. 2. Patient is status post cholecystectomy. ACT 112: Negative or not required by law. Electronically signed by: Osvaldo Romo M.D. 07/01/2023 7:49 PM
--- NOTE | 2023-07-01 20:24 | Magnetic Resonance Report ---
MRI OF THE BRAIN COMBO CLINICAL HISTORY: Change in mental status. COMPARISON STUDY: No priors. TECHNIQUE: MRI of the brain was performed utilizing various T1 and T2-weighted sequences in the axial , sagittal, and coronal planes. Contrast-enhanced sequences were acquired following the administratio n of 4.8 cc of Gadavist. FINDINGS: Brain parenchyma: There is age-related involutional change noting moderate subcortical and periventri cular microangiopathic disease. There is no hemorrhage or mass effect. There is no restricted diffusi on to suggest acute ischemia. No enhancing mass lesion is identified on the postcontrast images. [place] -white matter differentiation is preserved. 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 No extra-axial fluid collection is seen. The cerebellar tonsils are normal in co nfiguration. Ventricles, sulci, and cisterns: Prominent secondary to positional change. Pituitary and sella: Unremarkable. Intracranial vasculature: Normal flow voids are maintained at the skull base. Orbits: The bony orbits are grossly intact. Orbital contents are normal in appearance noting bilatera l ocular lens implants. Sinuses and mastoids: There is mucosal thickening within the sphenoid sinuses. The remaining paranasa l sinuses and the mastoid air cells are clear. Calvarium: Unremarkable. Cervical cord: Partially visualized cervical spinal cord is normal in morphology and signal intensity . IMPRESSION: No acute intracranial abnormality. ACT 112: Negative or not required by law. Electronically signed by: Basil Lambert M.D. 07/01/2023 8:22 PM
[2023-07-01] MEDS: HEPARIN SOD 5,000 UNIT/0.5 ML VIAL SQ SCH (20:43)
[2023-07-01] MEDS: ARTIFICIAL TEARS OP SCH (20:43)
[2023-07-01] MEDS: DOCUSATE SODIUM 100 MG CAP PO SCH (20:43)
[2023-07-02 06:47] LABS: Hematocrit (blood only) 32.9 % (37.0-47.0); Hemoglobin 10.9 g/dl (12.0-16.0); Mean Corpuscular Hemoglobin 28.2 pg (25.0-34.0); Mean Corpuscular Hgb Conc 33.1 g/dL (32.0-36.0); Mean Platelet Volume 10.5 fL (9.4-12.4); Platelet Count 310 K/uL (130-400); RDW Coefficient of Variation 15.2 % (11.5-14.5); RDW Standard Deviation 46.5 fL (36.4-46.3); Red Blood Count 3.87 M/uL (4.20-5.40); White Blood Count 10.05 K/ul (4.8-10.8)
[2023-07-02 07:09] LABS: BUN Creatinine Ratio 31.8 (10-20); Calcium 8.1 mg/dl (8.6-10.3); Creatinine Clr Calc Pharmacy 44.5 ml/min; Est GFR (African American) 91.4 ml/min; Est GFR (Non-African American) 78.9 ml/min; Magnesium 1.8 mg/dl (1.7-2.4); Phosphorus 2.6 mg/dl (2.5-4.9); Potassium 3.6 mmol/L (3.5-5.1)
[2023-07-02] MEDS ORDERED: POTASSIUM CHLORIDE CRTAB 20 MEQ TABCR PO STA (07:39)
--- NOTE | 2023-07-02 07:48 | Hospitalist Progress Note ---
Date of Service July 02, 2023 Assessment & Plan (1) Weight loss: (2) Other specified problems related to primary support group: Plan Ms. Peguero is an 87-year-old female who has a significant past medical history of HTN, age-related osteoporosis, BPPV, statin intolerance who presents to ED secondary to generalized weakness and lack of appetite x2 weeks. Patient follows with PCP at [facility], [place], [place]. 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 At that time she also had significantly elevated LFTs. Family states unhappy with care and wish to pursue further imaging regarding this, but nobody would. Patient also recently seen at [facility] 5 days ago, twice in 1 day, due to worsened progressive weakness, increased confusion and inability to care for self at home. Due to no significant abnormality found she was discharged home and told maybe she had a, "TIA." Currently patient lives alone with her cat, ambulates with a walker occasionally and has family close by. Qzfpqron-ly-tfl and granddaughter at bedside elicit patient does have underlying dementia which is worsening and she is unable to care for self at home. Family is interested in placement.They further report approximately 20 pound weight loss in the last 1 month. They are also interested in pursuing further work-up regarding this, "pancreatic mass as well as requesting an MRI of brain to rule out possible stroke." " Patient appears cognitively intact. She is AOx4. She denies any acute issues. She wishes to return home and does not desire placement at this time. Son and uvhayvku-xx-odn actively engaged in care, with multiple notes documenting frequent concerns of "safety." They state that they are "getting different reports" and "other doctors say [the patient] needs 24/7 support" and the patient "cannot live with them." It was expressed to son and aberjuhy-zj-erf that review of records available as well as current evaluation as not revealed any chronic cognitive illnesses that would require medical justification for placement. It was expressed that acute illness, like common cold/flu like symptoms, can cause acute decline in elderly with prompt recovery of symptoms when treated (example, IVF). Son and aiqzpoid-dg-cuu expressed extreme, apparent dissatisfaction with report of normal imaging, including unremarkable MRI and unremarkable CT scan. Informed every one in the room (including nurse, corrections caseworker, son, and daughter in law) that the plan going forward would include formal psych eval for cognitive impairment; monitoring for behavioral disturbances, to include confusion; as well as daily assessment of understanding. If the aforementioned does not yield any signs of impairment that warrant 24/7 s upport, then will discharged home with home services--as well as a request from [facility] Aging for courtesy visit to assess state of home, patient's wellbeing outside of hospitalization. Anezcfha-cq-knp abruptly left conversation. Son agreed to aforementioned plan. #Complex psychosocial situation Years of documentation of son and daughter in law seeking placement, expressing concern over "safety" Neuropsych testing in 2019 negative for cognitive impairment to any degree (see below) Neurology followed for vertigo, transient in nature, but no imaging findings since 2017 for acute stroke or other acute abnormalities MRI brain negative for acute process on this admission CT AP without abdominal mass on this admission CT chest with small RLL (4mm) nodule and bronchiectasis TSH WNL Resp panel negative, UA negative, blood cultures NGTD PT/OT without signs of weakness appreciated Order B12, folate, iron to am labs #Bronchiectasis #Lung Nodule -4mm lung nodule RLL -Outpatient follow up for routine imaging -Patient on Room air without resp concerns, CTM #Hypokalemia *resolved replete, follow in am. 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 Has participated in [facility] and been encouraged to follow up OP with Neuro and [facility] for concerns. Not on statin 2/2 intolerance Continue ASA Trial of meclizine #Osteoporosis -Continue alendronate q wednesday DVT ppx: SQ Heparin DNR/DNI The following paragraphs have been copied over from outside [employer] EMR from visits: Neuropsychological from 10/04/2019 OZZIE BEARD PHD JAY VALLECILLO: "The results of both tests that her memory ability falls in the average range. She had minor difficulty with several problems but she was able to self correct. There were no indications of memory impairment on these tests." Telephone encounter from 10/20/2019: " I called and spoke to her daugher in law. I did let her know that we never received the paperwork from the Dr. Beard. Daughter in law is very frustrated with Karly, she is not very honest with them. She does not tell them when she is dizzy. Family feels very strongly that she should not be driving. She states that Karly has fooled the home nurses/home PT into believing she has no issues, however, she has used the entire script of Antivert that was given on 09/21/2019. She is calling Dr. Beard and asking them to resend the office note. [id number]" Telephone encounter from 10/20/2019: Pt's nwrtcnxj-sw-wxv calling in with the following concerns. Pt was seen last month with Dr. Ozzie Beard in [place] for neuropsych testing. The office sent the information to [facility] immediately following the exam. Pt's daughter in law is wondering why she has not received a call back in regards to this (regardless of whether or not the testing has been received)Pt's family is frustrated that they have not been contacted with any updates to the pt's care. They would like to know what the next step should be as far as the pt's ability to drive. Pt is still dizzy throughout the day and the family does not feel it is safe for her to drive. They do not understand why home health discharged the pt from their services when the pt is still having symptoms. Uvblkmnf-st-qkf is disappointed with the services they have received and feels that she may transfer the pt outside of [facility]. She declined offer to transfer to complaint line. Please advise. 1421 Telephone encounter from 10/04/2019 (NEUROLOGY): I evaluated the patient in the context of an acute vestibular syndrome follow up. Patient had vertigo in the hospital. Had resolved when I saw her. I therefore did not perform any additional testing. We did not discuss this topic and family did not voice concern for driving. I Would defer to family. If family has concerns would recommend formal driving assessment. 1433 Telephone encounter from 10/04/2019 (FAMILY PRACTICE): If driving is okay with Neurology it is okay with me. 1709 Progress Note encounter from 09/22/2019 (NEUROLOGY): "Acute vestibular syndrome Vertigo MS. Peguero is a very pleasant 84-year-old woman presenting to clinic for hospital follow-up. Patient was recently admitted [facility] for an episode of acute vertigo. Symptoms have since resolved. On examination she has no evidence of nystagmus or ataxia with akhhxw-by-wsyn testing. There is no tremor. She is able to stand from seated position with arms crossed. She is also able to perform tandem gait. She denies headache. I did discuss the possibility of a mild TBI or concussion status post her fall which may be contributing to her feeling a little groggy for the last few days. Hospital workup was reassuring and discussed and reviewed with patient. No she can certainly use meclizine as needed. I did discuss the possibility of a scopolamine patch if needed also. If vertigo does return she would benefit from the vestibular rehab or balance Center. Otherwise she can follow up with me as needed for right now. Patient and family agreed plan of care had no further questions time. I did provide the family with my contact card should they have any further questions. Mike Cifuentes DO" Progress Note encounter from 05/25/2017 ([facility]): "Assessment / Plan: Patient is a 81 year old female with a 4 month history of positional type vertigo. I think her history is classic for BPPV, however head positioning tests were negative today and symptoms have been inactive over the last week. I suspect the condition may have resolved (debris degradation in endolymph) or could be waxing and waning. Remainder of the office-based vestibular examination appeared normal, no evidence of acute vestibular loss. Highly appropriate to see for return visit if positional type symptoms recur. I extensively discussed BPPV with the patient and stressed the importance of pursuing canalith repositioning maneuvers to address BPPV recurrences, maneuvers are typically effective (~95% in 1-2 sessions) and not costly. Rehabilitation potential: To be determined Goals: To be determined Approximately 1 visit/week for 12 weeks, only as needed. Plan will include reassessment including repeated positioning tests, canalith repositioning maneuvers (if needed) and patient education on self management to address potential recurrences. Patient will call clinic to schedule return visit if needed Treatment plan was reviewed with the patient who agreed with the plan of care DAVID Monroe PTT, NCS Director, Otolaryngology [facility] Page #[phone]" Admission and Anticipated Discharge Date Admission Date: July 01, 2023 Subjective NAEO. No reports of delirium/hallucinations/behavioral disturbances. Patient evaluated at bedside multiple times this morning/afternoon. She states she feels well overall. She lives alone, with the company of her beloved cat. She states her routine day involves "waking up, feeding the cat, eating a small breakfast, and watching TV." She states her medications are on the counter in bottles and she takes a "cholesterol one, a blood pressure one, an aspirin, and a vitamin" as well as "one every Wednesday for bones." She was able to verbalize her full name, the name of her acting hospitalist, the year, president, location, and the events leading up to hospitalization. She denies any falls, incidents leaving the stove on, accidents or other concerns. She states she has no limitations, but notes that she occasionally will forget why she walks into a room. She denies any financial issues. She states she doesn't like to cook and is happy with frozen meals, noting that she isn't a big eater and "never has been." She states she did "feel just awful", noting some abdominal cramping and general malaise prior to admission; but states she feels improved. She states she wishes to return to home and does not want go to any computer terminal operator care. Review of Systems Review of Systems: All systems reviewed & are unremarkable except as noted in Subjective Physical Exam Constitutional: WD/WN, vitals as above Respiratory: normal respiratory effort, lungs clear to auscultation Cardiovascular: RRR, no murmur, no edema Neurologic: PERRL, EOMI, accommodation nl, no face palsy, no dysarthria Psychiatric: A+Ox3, euthymic affect Orientation: cooperative Apperance: appropriately groomed Eye Contact: good eye contact Motor Behavior: no abnormal motor movements Speech: normal rate/rhythm/volume of speech Thought Process: clear/coherent thought process Cognition: recent memory grossly intact, attention grossly intact and language grossly intact Insight: good insight almost seemed to defer to family "well if they said that, then it must be so"; "they said they [other doctors] are all liars" Results & Data Results & Data Vital Signs (Past 12 Hours) Vital Signs Temp Pulse Pulse Pulse Resp BP Pulse Ox 07/02/23 02:00 37.2 C 77 20 124/68 92 07/01/23 23:25 70 07/01/23 23:16 36.7 C 76 18 129/57 L 95 07/01/23 20:00 37.2 C 80 18 129/74 94 O2 Del Method 07/02/23 02:00 Room Air 07/01/23 23:25 07/01/23 23:16 Room Air 07/01/23 20:00 Room Air Laboratory Results Short CBC 07/01/23 07/02/23 Range/Units 11:52 06:25 WBC 11.76 H 10.05 (4.8-10.8) K/ul Hgb 13.4 10.9 L (12.0-16.0) g/dl Hct 40.0 32.9 L (37.0-47.0) % Plt Count 380 310 (130-400) K/uL BMP 07/01/23 07/02/23 11:52 06:25 Sodium 140 139 Potassium 3.2 L 3.6 Chloride 103 108 H Carbon Dioxide 27 24 BUN 26 H 21 Creatinine 0.81 0.66 Glucose 96 92 Calcium 9.8 8.1 L Liver Function 07/01/23 Range/Units 11:52 Total Bilirubin 0.5 (0.2-1.0) mg/dl AST 22 (13-39) U/L ALT 29 (7-52) U/L Alkaline Phosphatase 172 H (34-104) U/L Albumin 3.5 (3.4-5.0) gm/dl Urine 07/01/23 Range/Units 14:10 Urine Color Yellow Urine Appearance Clear (Clear) Urine pH 5.0 (4.5-7.5) Ur Specific [place] 1.021 (1.000-1.030) Urine Protein 2+ H (Negative) Urine Glucose (UA) Negative (Negative) Diagnostic Findings Chest X-Ray 07/01/23 12:25 XR chest 1V portable CLINICAL HISTORY: weakness TECHNIQUE: Single frontal radiograph of the chest was obtained. Comparison: None available at the time of this dictation. FINDINGS: No lines and tubes are seen. Calcified aortic knob is seen. Reticular interstitial opacities are seen. Radiodensities are seen in the bilateral lung bases. No evidence of pleural effusion or pneumothorax. IMPRESSION: Interstitial opacities are seen. Atelectasis without evidence of aspiration/pneumonia. ACT 112: Negative or not required by law. Electronically signed by: Osvaldo Romo M.D. 07/01/2023 1:15 PM Abdomen/Pelvis CT 07/01/23 15:21 CT abd pelvis IV con only CLINICAL HISTORY: eval for pancreatic mass TECHNIQUE: Helical axial images of the abdomen and pelvis were obtained and displayed. Automated dose lowering techniques and/or adjustment according to patient size were utilized for this exam. This exam was performed with intravenous contrast. CT DOSE: 591.85 mGy.cm COMPARISON: None available at the time of this dictation. FINDINGS: Lower chest: For findings above the diaphragm, please see CT chest performed same day. Liver: Unremarkable. No focal lesions are seen. Gallbladder and biliary tree: Patient is status post cholecystectomy. Physiologic prominence of the biliary ducts is noted. Pancreas: Unremarkable, no focal lesions. Pancreatic duct measures up to 4 mm of the body. Spleen: Unremarkable. Adrenals: Unremarkable. Kidneys and ureters: Subcentimeter hypodensities are too small to characterize. Bladder: Unremarkable. Reproductive organs: Unremarkable. Bowel: Diverticulosis is seen without diverticulitis. The appendix is normal. Lymph nodes Retroperitoneal: Unremarkable. Pelvic: Unremarkable. Mesenteric: Unremarkable. Peritoneum: Normal. Vessels: Atherosclerotic calcifications are seen. Abdominal wall: Unremarkable. Bones: Unremarkable. IMPRESSION: 1. No CT evidence of pancreatic mass. No acute abnormalities are seen. 2. Patient is status post cholecystectomy. ACT 112: Negative or not required by law. Electronically signed by: Osvaldo Romo M.D. 07/01/2023 7:49 PM Brain MRI 07/01/23 15:21 MRI OF THE BRAIN COMBO CLINICAL HISTORY: Change in mental status. COMPARISON STUDY: No priors. TECHNIQUE: MRI of the brain was performed utilizing various T1 and T2-weighted sequences in the axial, sagittal, and coronal planes. Contrast-enhanced sequences were acquired following the administration of 4.8 cc of Gadavist. FINDINGS: Brain parenchyma: There is age-related involutional change noting moderate subcortical and periventricular microangiopathic disease. There is no hemorrhage or mass effect. There is no restricted diffusion to suggest acute ischemia. No enhancing mass lesion is identified on the postcontrast images. [place]-white matter differentiation is preserved. 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 No extra-axial fluid collection is seen. The cerebellar tonsils are normal in configuration. Ventricles, sulci, and cisterns: Prominent secondary to positional change. Pituitary and sella: Unremarkable. Intracranial vasculature: Normal flow voids are maintained at the skull base. Orbits: The bony orbits are grossly intact. Orbital contents are normal in appearance noting bilateral ocular lens implants. Sinuses and mastoids: There is mucosal thickening within the sphenoid sinuses. The remaining paranasal sinuses and the mastoid air cells are clear. Calvarium: Unremarkable. Cervical cord: Partially visualized cervical spinal cord is normal in morphology and signal intensity. IMPRESSION: No acute intracranial abnormality. ACT 112: Negative or not required by law. Electronically signed by: Basil Lambert M.D. 07/01/2023 8:[address] 07/01/23 15:49 CT chest diagnostic wo con CLINICAL HISTORY: pain, sob TECHNIQUE: Multidetector row helical CT of the chest was performed. Coronal and sagittal reformations were obtained. Automated dose lowering techniques and/or adjustment according to patient size were utilized for this exam. Comparison: None available at the time of this dictation. FINDINGS: Lungs and pleura: Bronchiectasis and interstitial scarring are seen. There is a 4 mm nodule in the right lower lobe (series 4 image 132). Trace pleural fluid is noted. Heart and pericardium: Heart size is normal. No pericardial effusion. Vessels: Mild atherosclerotic changes in the aorta and coronary arteries. Mediastinum and tremayne: Subcentimeter lymph nodes are seen. Chest wall and lower neck: Unremarkable. Abdomen: For findings below the diaphragm, please refer to CT of the abdomen dated the same. Bones: Degenerative changes in the thoracic spine. IMPRESSION: Bronchiectasis and interstitial fibrotic changes are seen. There is trace bilateral pleural effusions. Tiny pulmonary nodules as above. ACT 112: Negative or not required by law. Electronically signed by: Osvaldo Romo M.D. 07/01/2023 7:16 PM Medications Administered Home Medications Medication Instructions Recorded Confirmed Last Taken alendronate 70 mg tablet 70 mg PO DILL 07/01/23 07/01/23 Unknown aspirin 81 mg tablet,delayed 81 mg PO DAILY 07/01/23 07/01/23 Unknown release calcium citrate 200 mg (950 mg) 200 mg PO DAILY 07/01/23 07/01/23 Unknown tablet dextran 70-hypromellose (PF) 0.1 1 drp ophthalmic (eye) HS 07/01/23 07/01/23 Unknown %-0.3 % eye drops in a dropperette (Artificial Tears (PF)) losartan 50 mg tablet 50 mg PO DAILY 07/01/23 07/01/23 Unknown multivitamin 1 tab PO DAILY 07/01/23 07/01/23 Unknown Active Medications Generic Name Dose Route Start Last Admin Trade Name Freq PRN Reason Stop Dose Admin Acetaminophen 650 mg 07/01/23 17:30 07/02/23 04:11 Acetaminophen 325 Mg Tab PO 07/31/23 17:29 650 mg Q4H PRN Administration pain/fever Artificial Tears 1 drops 07/01/23 21:00 07/01/23 20:43 Artificial Tears OP 07/31/23 20:59 Not Given HS MALU Docusate Sodium 100 mg 07/01/23 21:00 07/01/23 20:43 Docusate Sodium 100 Mg Cap PO 07/31/23 20:59 100 mg BID MALU Administration Heparin Sodium (Porcine) 5,000 units 07/01/23 21:00 07/01/23 20:43 Heparin Sod 5,000 Unit/0.5 Ml Vial SQ 07/31/23 20:59 5,000 units Q12 MALU Administration Potassium Chloride/Sodium Chloride 20 meq in 1,000 mls @ 60 mls/hr 07/01/23 18:00 07/02/23 04:55 Normal Saline W/20 Meq Kcl IV 07/02/23 10:39 60 mls/hr .[id number] MALU Infusion Protocol
[2023-07-02] MEDS: DOCUSATE SODIUM 100 MG CAP PO SCH ×2 (08:56→19:53)
[2023-07-02] MEDS: ASPIRIN 81 MG ECTAB PO SCH (08:57)
[2023-07-02] MEDS: CALCIUM 600MG + VIT D 400 IU TAB PO SCH (08:57)
[2023-07-02] MEDS: MULTIVITAMIN TAB PO SCH (08:57)
[2023-07-02] MEDS: HEPARIN SOD 5,000 UNIT/0.5 ML VIAL SQ SCH ×2 (08:57→19:53)
[2023-07-02] MEDS: LOSARTAN POTASSIUM 50 MG TAB PO SCH (08:57)
--- NOTE | 2023-07-02 12:45 | Electrocardiogram Report ---
Test Reason : Blood Pressure : / mmHG Vent. Rate : 088 BPM Atrial Rate : 088 BPM P-R Int : 146 ms QRS Dur : 076 ms QT Int : 338 ms P-R-T Axes : 066 -16 060 degrees QTc Int : 408 ms Normal sinus rhythm Possible Left atrial enlargement Borderline ECG No previous ECGs available Confirmed by Tiburcio Guthrie ([id number]) on 07/02/2023 12:44:34 PM Referred By: REFERRED SELF Confirmed By:Tiburcio Guthrie
[2023-07-02] MEDS: ARTIFICIAL TEARS OP SCH (19:53)
[2023-07-03 06:49] LABS: Hematocrit (blood only) 33.9 % (37.0-47.0); Hemoglobin 11.3 g/dl (12.0-16.0); Mean Corpuscular Hgb Conc 33.3 g/dL (32.0-36.0); Mean Corpuscular Volume 84.1 fL (80.0-100.0); Platelet Count 367 K/uL (130-400); RDW Coefficient of Variation 14.7 % (11.5-14.5); Red Blood Count 4.03 M/uL (4.20-5.40); White Blood Count 11.04 K/ul (4.8-10.8)
[2023-07-03 07:21] LABS: BUN Creatinine Ratio 23.1 (10-20); Calcium 8.2 mg/dl (8.6-10.3); Creatinine Clr Calc Pharmacy 45.1 ml/min; Est GFR (African American) 91.9 ml/min; Est GFR (Non-African American) 79.3 ml/min; Magnesium 1.8 mg/dl (1.7-2.4); Phosphorus 2.8 mg/dl (2.5-4.9); Potassium 3.7 mmol/L (3.5-5.1)
[2023-07-03 07:40] LABS: Ferritin 275.5 ng/ml (8-388)
[2023-07-03] MEDS: HEPARIN SOD 5,000 UNIT/0.5 ML VIAL SQ SCH ×2 (08:54→20:03)
[2023-07-03] MEDS: CALCIUM 600MG + VIT D 400 IU TAB PO SCH (08:54)
[2023-07-03] MEDS: LOSARTAN POTASSIUM 50 MG TAB PO SCH (08:54)
[2023-07-03] MEDS: DOCUSATE SODIUM 100 MG CAP PO SCH ×2 (08:54→20:03)
[2023-07-03] MEDS: ASPIRIN 81 MG ECTAB PO SCH (08:54)
[2023-07-03] MEDS: MULTIVITAMIN TAB PO SCH (08:54)
--- NOTE | 2023-07-03 15:09 | Hospitalist Progress Note ---
Date of Service July 03, 2023 Assessment & Plan (1) Generalized weakness: Plan: She was admitted on 07/01/2023 with weakness and confusion with history of dementia No apparent infection was found to complicate general weakness Noted to be mildly dehydrated with BUN of 26 Received adequate amount of IV fluid and the weakness improved Also received potassium supplement to improve her general condition She has had physical therapy and has been doing much better Has had occupational therapy-recommended if required ADL's can be met then she can be discharged Family members are worried that she might not do good alone at home and wanted to have placement The patient also feels that she may be better off going to rehab for short-term We will try for placement (2) Weight loss: Plan: Weight loss has been going on for some time Her appetite is reasonable but she does not finish the meal No evidence of any intraluminal cancer with history of possible pancreatic mass which has been ruled out She was advised to eat and drink more (3) Confusion: Plan: Presented with confusion that seems to be cleared up subsequently She has history of dementia as per family members-further documentation of that he is as below from my colleague earlier MRI brain negative for acute process on this admission CT AP without abdominal mass on this admission CT chest with small RLL (4mm) nodule and bronchiectasis TSH remains normal Resp panel negative, UA negative, blood cultures NGTD-no signs and or symptoms of infection Order B12, folate-have been canceled and will reorder for tomorrow morning that is 07/04/2023, Iron levels have been minimally low at 34 Her confusion seems to be cleared She remains mentally clear during examination (4) HTN (hypertension): Plan: Remains controlled We will continue current medications #Complex psychosocial situation Years of documentation of son and daughter in law seeking placement, expressing concern over "safety" Neuropsych testing in 2020 negative for cognitive impairment to any degree (see below) Neurology followed for vertigo, transient in nature, but no imaging findings since 2017 for acute stroke or other acute abnormalities MRI brain negative for acute process on this admission CT AP without abdominal mass on this admission CT chest with small RLL (4mm) nodule and bronchiectasis TSH WNL Resp panel negative, UA negative, blood cultures NGTD PT/OT without signs of weakness appreciated #Bronchiectasis #Lung Nodule -4mm lung nodule RLL -Outpatient follow up for routine imaging -Patient on Room air without resp concerns, CT -No antibiotics needed #Chronic dizziness/vertigo No history of vertebral insufficiency, concerns ruled out; 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 Has participated [facility] and been encouraged to follow up OP with [facility] and [facility] for concerns. Not on statin 2/2 intolerance Continue ASA Trial of meclizine #Osteoporosis -Continue alendronate q wednesday DVT ppx: SQ Heparin DNR/DNI We will discuss with the family members when available (5) Other specified problems related to primary support group: Plan: As documented below Plan Ms. Peguero is an 87-year-old female who has a significant past medical history of HTN, age-related osteoporosis, BPPV, statin intolerance who presents to ED secondary to generalized weakness and lack of appetite x2 weeks. Patient follows with PCP at [facility], [place]. 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 At that time she also had significantly elevated LFTs. Family states unhappy with care and wish to pursue further imaging regarding this, but nobody would. Patient also recently seen at [facility] 5 days ago, twice in 1 day, due to worsened progressive weakness, increased confusion and inability to care for self at home. Due to no significant abnormality found she was discharged home and told maybe she had a, "TIA." Currently patient lives alone with her cat, ambulates with a walker occasionally and has family close by. Szubfduq-pk-kkf and granddaughter at bedside elicit patient does have underlying dementia which is worsening and she is unable to care for self at home. Family is interested in placement.They further report approximately 20 pound weight loss in the last 1 month. They are also interested in pursuing further work-up regarding this, "pancreatic mass as well as requesting an MRI of brain to rule out possible stroke." " Patient appears cognitively intact. She is AOx4. She denies any acute issues. She wishes to return home and does not desire placement at this time. Son and oqvlhxmj-at-gmz actively engaged in care, with multiple notes documenting frequent concerns of "safety." They state that they are "getting different reports" and "other doctors say [the patient] needs 24/7 support" and the patient "cannot live with them." It was expressed to son and dzqqdqpi-po-vwu that review of records available as well as current evaluation as not revealed any chronic cognitive illnesses that would require medical justification for placement. It was expressed that acute illness, like common cold/flu like symptoms, can cause acute decline in elderly with prompt recovery of symptoms when treated (example, IVF). Son and rdqxjfsm-gp-xoc expressed extreme, apparent dissatisfaction with report of normal imaging, including unremarkable MRI and unremarkable CT scan. Informed every one in the room (including nurse, dependency case manager, son, and daughter in law) that the plan going forward would include formal psych eval for cognitive impairment; monitoring for behavioral disturbances, to include confusion; as well as daily assessment of understanding. If the aforementioned does not yield any signs of impairment that warrant 24/7 support, then will discharged home with home services--as well as a request from [facility] for courtesy visit to assess state of home, patient's wellbeing outside of hospitalization. [id number]-pf-tdr abruptly left conversation. Son agreed to aforementioned plan. #Complex psychosocial situation Years of documentation of son and daughter in law seeking placement, expressing concern over "safety" Neuropsych testing in 2020 negative for cognitive impairment to any degree (see below) Neurology followed for vertigo, transient in nature, but no imaging findings since 2017 for acute stroke or other acute abnormalities MRI brain negative for acute process on this admission CT AP without abdominal mass on this admission CT chest with small RLL (4mm) nodule and bronchiectasis TSH WNL Resp panel negative, UA negative, blood cultures NGTD PT/OT without signs of weakness appreciated Order B12, folate, iron to am labs #Bronchiectasis #Lung Nodule -4mm lung nodule RLL -Outpatient follow up for routine imaging -Patient on Room air without resp concerns, CTM #Hypokalemia *resolved replete, follow in am. 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 Has participated in [facility] and been encouraged to follow up OP with [facility] for concerns. Not on statin 2/2 intolerance Continue ASA Trial of meclizine #Osteoporosis -Continue alendronate q wednesday DVT ppx: SQ Heparin DNR/DNI The following paragraphs have been copied over from outside [facility] EMR from visits: Neuropsychological from 10/04/2019 JAY PAUL PHD: "The results of both tests that her memory ability falls in the average range. She had minor difficulty with several problems but she was able to self correct. There were no indications of memory impairment on these tests." Telephone encounter from 10/20/2019: " I called and spoke to her daugher in law. I did let her know that we never received the paperwork from the Dr. Knutson. Daughter in law is very frustrated with Karly, she is not very honest with them. She does not tell them when she is dizzy. Family feels very strongly that she should not be driving. She states that [facility]arly has fooled the home nurses/home PT into believing she has no issues, however, she has used the entire script of Antivert that was given on 09/21/2019. She is calling Dr. Knutson and asking them to resend the office note. [id number]" Telephone encounter from 10/20/2019: Pt's yyhsvlfw-yw-vmu calling in with the following concerns. Pt was seen last month with Dr. Zach Knutson in [place] for neuropsych testing. The office sent the information to [facility] immediately following the exam. Pt's daughter in law is wondering why she has not received a call back in regards to this (regardless of whether or not the testing has been received)Pt's family is frustrated that they have not been contacted with any updates to the pt's care. They would like to know what the next step should be as far as the pt's ability to drive. Pt is still dizzy throughout the day and the family does not feel it is safe for her to drive. They do not understand why home health discharged the pt from their services when the pt is still having symptoms. Nqoieloa-au-pja is disappointed with the services they have received and feels that she may transfer the pt outside of [facility]. She declined offer to transfer to complaint line. Please advise. [id number] Telephone encounter from 10/04/2019 (NEUROLOGY): I evaluated the patient in the context of an acute vestibular syndrome follow up. Patient had vertigo in the hospital. Had resolved when I saw her. I therefore did not perform any additional testing. We did not discuss this topic and family did not voice concern for driving. I Would defer to family. If family has concerns would recommend formal driving assessment. [id number] Telephone encounter from 10/04/2019 (FAMILY PRACTICE): If driving is okay with Neurology it is okay with me. [id number] Progress Note encounter from 09/22/2019 (NEUROLOGY): "Acute vestibular syndrome Vertigo MS. Peguero is a very pleasant 84-year-old woman presenting to clinic for hospital follow-up. Patient was recently admitted [facility] for an episode of acute vertigo. Symptoms have since resolved. On examination she has no evidence of nystagmus or ataxia with eytnmn-wu-ugja testing. There is no tremor. She is able to stand from seated position with arms crossed. She is also able to perform tandem gait. She denies headache. I did discuss the possibility of a mild TBI or concussion status post her fall which may be contributing to her feeling a little groggy for the last few days. Hospital workup was reassuring and discussed and reviewed with patient. No she can certainly use meclizine as needed. I did discuss the possibility of a scopolamine patch if needed also. If vertigo does return she would benefit from the vestibular rehab or [facility] Center. Otherwise she can follow up with me as needed for right now. Patient and family agreed plan of care had no further questions time. I did provide the family with my contact card should they have any further questions. Mike Cifuentes DO" Progress Note encounter from 05/25/2017 ([facility]): "Assessment / Plan: Patient is a 81 year old female with a 4 month history of positional type vertigo. I think her history is classic for BPPV, however head positioning tests were negative today and symptoms have been inactive over the last week. I suspect the condition may have resolved (debris degradation in endolymph) or could be waxing and waning. Remainder of the office-based vestibular examination appeared normal, no evidence of acute vestibular loss. Highly appropriate to see for return visit if positional type symptoms recur. I extensively discussed BPPV with the patient and stressed the importance of pursuing canalith repositioning maneuvers to address BPPV recurrences, maneuvers are typically effective (~95% in 1-2 sessions) and not costly. Rehabilitation potential: To be determined Goals: To be determined Approximately 1 visit/week for 12 weeks, only as needed. Plan will include reassessment including repeated positioning tests, canalith repositioning maneuvers (if needed) and patient education on self management to address potential recurrences. Patient will call clinic to schedule return visit if needed Treatment plan was reviewed with the patient who agreed with the plan of care Alexys Coleman PT, DPT, NCS Director, Otolaryngology [facility] Page #[phone]" Admission and Anticipated Discharge Date Admission Date: July 01, 2023 Subjective 07/03/2023 The patient was seen and examined in medical telemetry unit She has been sitting on a chair without any acute distress Denies any acute symptoms Specially no chest pain, shortness of breath, palpitation, no abdominal pain, nausea and or vomiting. Her weakness has been improving and she has been eating and drinking reasonably Review of Systems Review of Systems: All systems reviewed and are unremarkable except as noted below Physical Exam Physical Exam: Sitting on a chair without any acute distress Constitutional: + ill appearing and + thin Eyes: PERRL, conjunctivae normal, anicteric sclerae ENMT: external ear and nose normal, oropharynx normal Neck: trachea midline, no thyromegaly Respiratory: no respiratory distress Auscultation: + diminished lung sounds and + crackles (Minimal bibasilar crackles) Cardiovascular: Rate/Rhythm: regular rate and regular rhythm; not tachycardic Heart Sounds: normal S1, normal S2 and + murmur Extremities: no edema Gastrointestinal (Abdomen): Inspection/Auscultation: normal bowel sounds; abdomen not distended Percussion/Palpation: abdomen soft; abdomen nontender Musculoskeletal: No acute arthritis involving any of the joint Neurologic: normal touch/pain/proprioception and moves all extremities; no focal motor deficits and not confused Alert, awake and oriented x3. No focal sensory or motor deficit appreciated Psychiatric: A+Ox3, euthymic affect Results & Data Results & Data Vital Signs (Past 12 Hours) Vital Signs Temp Pulse Pulse Resp BP Pulse Ox O2 Del Method 07/03/23 11:56 36.8 C 79 18 115/62 95 Room Air 07/03/23 09:37 68 07/03/23 07:54 36.8 C 74 18 139/70 94 Room Air Laboratory Results Short CBC 07/03/23 Range/Units 06:22 WBC 11.04 H (4.8-10.8) K/ul Hgb 11.3 L (12.0-16.0) g/dl Hct 33.9 L (37.0-47.0) % Plt Count 367 (130-400) K/uL BMP 07/03/23 06:22 Sodium 140 Potassium 3.7 Chloride 108 H Carbon Dioxide 26 BUN 15 Creatinine 0.65 Glucose 108 H Calcium 8.2 L Medications Administered Current Inpatient Medications Acetaminophen (Acetaminophen 325 Mg Tab) 650 mg PO Q4H PRN PRN Reason: pain/fever Stop: 07/31/23 17:29 Last Admin: 07/02/23 04:11 Dose: 650 mg Al Hydrox/Mg Hydrox/Simethicone (Aluminum/Magnesium Susp 30 Ml Udc) 30 ml PO Q6H PRN PRN Reason: Dyspepsia Stop: 07/31/23 17:29 Artificial Tears (Artificial Tears) 1 drops OP HS MALU Stop: 07/31/23 20:59 Last Admin: 07/02/23 19:53 Dose: 1 drops Aspirin (Aspirin 81 Mg Ectab) 81 mg PO DAILY MALU Stop: 08/01/23 08:59 Last Admin: 07/03/23 08:54 Dose: 81 mg Calcium/Vitamin D (Calcium 600mg + Vit D 400 Iu Tab) 1 tab PO DAILY MALU Stop: 08/01/23 08:59 Last Admin: 07/03/23 08:54 Dose: 1 tab Docusate Sodium (Docusate Sodium 100 Mg Cap) 100 mg PO BID MALU Stop: 07/31/23 20:59 Last Admin: 07/03/23 08:54 Dose: 100 mg Heparin Sodium (Porcine) (Heparin Sod 5,000 Unit/0.5 Ml Vial) 5,000 units SQ Q12 MALU Stop: 07/31/23 20:59 Last Admin: 07/03/23 08:54 Dose: 5,000 units Losartan Potassium (Losartan Potassium 50 Mg Tab) 50 mg PO DAILY MALU Stop: 08/01/23 08:59 Last Admin: 07/03/23 08:54 Dose: 50 mg Magnesium Hydroxide (Magnesium Hydroxide Susp 30 Ml Udc) 30 ml PO Q6H PRN PRN Reason: Constipation Stop: 07/31/23 17:29 Meclizine HCl (Meclizine Hcl 25 Mg Tab) 25 mg PO TID PRN PRN Reason: Dizziness or Vertigo Stop: 07/31/23 17:29 Multivitamins (Multivitamin Tab) 1 tab PO QAM MALU Stop: 08/01/23 08:59 Last Admin: 07/03/23 08:54 Dose: 1 tab Ondansetron HCl (Ondansetron Inj 2 Mg/Ml 2 Ml Vial) 4 mg IV Q6H PRN PRN Reason: Nausea Stop: 07/31/23 17:29 Polyethylene Glycol (Polyethylene (Miralax) 17 Gm Pack) 17 gm PO DAILY PRN PRN Reason: Constipation Stop: 07/31/23 17:29
[2023-07-03] MEDS: ARTIFICIAL TEARS OP SCH (20:02)
[2023-07-04 06:49] LABS: Basophils # (auto) 0.08 K/uL (0.00-0.20); Basophils % (auto) 0.7 %; Eosinophils # (auto) 1.53 K/uL (0.00-0.50); Hemoglobin 11.4 g/dl (12.0-16.0); Immature Granulocytes # (auto) 0.08 K/uL (0.01-0.20); Immature Granulocytes % (auto) 0.7 %; Lymphocytes # (auto) 2.62 K/uL (1.20-3.40); Lymphocytes % (auto) 22.3 %; Mean Corpuscular Hemoglobin 27.7 pg (25.0-34.0); Mean Corpuscular Hgb Conc 32.6 g/dL (32.0-36.0); Mean Corpuscular Volume 85.2 fL (80.0-100.0); Monocytes # (auto) 0.62 K/uL (0.11-0.59); Monocytes % (auto) 5.3 %; Neutrophils # (auto) 6.82 K/uL (1.40-6.50); Platelet Count 374 K/uL (130-400); RDW Coefficient of Variation 15.3 % (11.5-14.5); RDW Standard Deviation 47.5 fL (36.4-46.3); Red Blood Count 4.11 M/uL (4.20-5.40); White Blood Count 11.75 K/ul (4.8-10.8)
[2023-07-04 07:02] LABS: BUN Creatinine Ratio 21.3 (10-20); Calcium 8.8 mg/dl (8.6-10.3); Creatinine Clr Calc Pharmacy 48.1 ml/min; Est GFR (African American) 93.8 ml/min; Est GFR (Non-African American) 80.9 ml/min; Magnesium 1.9 mg/dl (1.7-2.4); Phosphorus 3.4 mg/dl (2.5-4.9); Potassium 3.9 mmol/L (3.5-5.1)
[2023-07-04] MEDS: ASPIRIN 81 MG ECTAB PO SCH (07:58)
[2023-07-04] MEDS: LOSARTAN POTASSIUM 50 MG TAB PO SCH (07:58)
[2023-07-04] MEDS: DOCUSATE SODIUM 100 MG CAP PO SCH ×2 (07:58→20:51)
[2023-07-04] MEDS: CALCIUM 600MG + VIT D 400 IU TAB PO SCH (07:58)
[2023-07-04] MEDS: MULTIVITAMIN TAB PO SCH (07:59)
[2023-07-04] MEDS: HEPARIN SOD 5,000 UNIT/0.5 ML VIAL SQ SCH ×2 (07:59→20:51)
--- NOTE | 2023-07-04 13:21 | Hospitalist Progress Note ---
Date of Service July 04, 2023 Assessment & Plan (1) Generalized weakness: Plan: She was admitted on 07/01/2023 with weakness and confusion with history of dementia No apparent infection was found to complicate general weakness Noted to be mildly dehydrated with BUN of 26 Received adequate amount of IV fluid and the weakness improved Also received potassium supplement to improve her general condition She has had physical therapy and has been doing much better Has had occupational therapy-recommended if required ADL's can be met then she can be discharged Family members are worried that she might not do good alone at home and wanted to have placement The patient also feels that she may be better off going to rehab for short-term We will try for placement Weakness may or may not improve down the line even with physical therapy She is not safe to discharge home-Will need placement (2) Weight loss: Plan: Weight loss has been going on for some time Her appetite is reasonable but she does not finish the meal No evidence of any intraluminal cancer with history of possible pancreatic mass which has been ruled out She was advised to eat and drink more (3) Confusion: Plan: Has vascular dementia Presented with confusion that seems to be cleared up subsequently She has history of dementia as per family members-further documentation of that he is as below from my colleague earlier MRI brain negative for acute process on this admission CT AP without abdominal mass on this admission CT chest with small RLL (4mm) nodule and bronchiectasis TSH remains normal Resp panel negative, UA negative, blood cultures NGTD-no signs and or symptoms of infection Order B12, folate-have been canceled and will reorder for tomorrow morning that is 07/04/2023, Iron levels have been minimally low at 34 Her confusion seems to be cleared She remains mentally clear during examination Gets occasionally forgetful otherwise no acute delirium (4) HTN (hypertension): Plan: Remains controlled We will continue current medications #Complex psychosocial situation Years of documentation of son and daughter in law seeking placement, expressing concern over "safety" Neuropsych testing in 2020 negative for cognitive impairment to any degree (see below) Neurology followed for vertigo, transient in nature, but no imaging findings since 2017 for acute stroke or other acute abnormalities MRI brain negative for acute process on this admission CT AP without abdominal mass on this admission CT chest with small RLL (4mm) nodule and bronchiectasis TSH WNL Resp panel negative, UA negative, blood cultures NGTD PT/OT without signs of weakness appreciated #Bronchiectasis #Lung Nodule -4mm lung nodule RLL -Outpatient follow up for routine imaging -Patient on Room air without resp concerns, CT -No antibiotics needed #Chronic dizziness/vertigo No history of vertebral insufficiency, concerns ruled out; 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 [facility] and been encouraged to follow up OP with [facility] for concerns. Not on statin 2/2 intolerance Continue ASA Trial of meclizine Strongly advised to take precaution to avoid fall and take time to initiate any movement-discussed with the patient and the family members #Osteoporosis -Continue alendronate q wednesday DVT ppx: SQ Heparin DNR/DNI We will discuss with the family members when available Detailed discussion is done with the family members (5) Other specified problems related to primary support group: Plan: As documented below Plan Ms. Peguero is an 87-year-old female who has a significant past medical history of HTN, age-related osteoporosis, BPPV, statin intolerance who presents to ED secondary to generalized weakness and lack of appetite x2 weeks. Patient follows with PCP at [facility], [place]. 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 At that time she also had significantly elevated LFTs. Family states unhappy with care and wish to pursue further imaging regarding this, but nobody would. Patient also recently seen at [facility] 5 days ago, twice in 1 day, due to worsened progressive weakness, increased confusion and inability to care for self at home. Due to no significant abnormality found she was discharged home and told maybe she had a, "TIA." Currently patient lives alone with her cat, ambulates with a walker occasionally and has family close by. Lssbxrwh-gw-jpp and granddaughter at bedside elicit patient does have underlying dementia which is worsening and she is unable to care for self at home. Family is interested in placement.They further report approximately 20 pound weight loss in the last 1 month. They are also interested in pursuing further work-up regarding this, "pancreatic mass as well as requesting an MRI of brain to rule out possible stroke." " Patient appears cognitively intact. She is AOx4. She denies any acute issues. She wishes to return home and does not desire placement at this time. Son and hwgaycdh-jc-jfe actively engaged in care, with multiple notes documenting frequent concerns of "safety." They state that they are "getting different reports" and "other doctors say [the patient] needs 24/7 support" and the patient "cannot live with them." It was expressed to son and zzzbfhbp-qf-rfg that review of records available as well as current evaluation as not revealed any chronic cognitive illnesses that would require medical justification for placement. It was expressed that acute illness, like common cold/flu like symptoms, can cause acute decline in elderly with prompt recovery of symptoms when treated (example, IVF). Son and [id number] expressed extreme, apparent dissatisfaction with report of normal imaging, including unremarkable MRI and unremarkable CT scan. Informed every one in the room (including nurse, porter sample case, son, and daughter in law) that the plan going forward would include formal psych eval for cognitive impairment; monitoring for behavioral disturbances, to include confusion; as well as daily assessment of understanding. If the aforementioned does not yield any signs of impairment that warrant 24/7 support, then will discharged home with home services--as well as a request from [facility] for courtesy visit to assess state of home, patient's wellbeing outside of hospitalization. Ukeufvdg-qs-gjz abruptly left conversation. Son agreed to aforementioned plan. #Complex psychosocial situation Years of documentation of son and daughter in law seeking placement, expressing concern over "safety" Neuropsych testing in 2020 negative for cognitive impairment to any degree (see below) Neurology followed for vertigo, transient in nature, but no imaging findings since 2017 for acute stroke or other acute abnormalities MRI brain negative for acute process on this admission CT AP without abdominal mass on this admission CT chest with small RLL (4mm) nodule and bronchiectasis TSH WNL Resp panel negative, UA negative, blood cultures NGTD PT/OT without signs of weakness appreciated Order B12, folate, iron to am labs #Bronchiectasis #Lung Nodule -4mm lung nodule RLL -Outpatient follow up for routine imaging -Patient on Room air without resp concerns, CTM #Hypokalemia *resolved replete, follow in am. 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 Has participated in [facility] and been encouraged to follow up OP with [facility] for concerns. Not on statin 2/2 intolerance Continue ASA Trial of meclizine #Osteoporosis -Continue alendronate q wednesday DVT ppx: SQ Heparin DNR/DNI The following paragraphs have been copied over from outside [facility] EMR from visits: Neuropsychological from 10/04/2019 OZZIE BEARD PHD RUTH ANN, PA: "The results of both tests that her memory ability falls in the average range. She had minor difficulty with several problems but she was able to self correct. There were no indications of memory impairment on these tests." Telephone encounter from 10/20/2019: " I called and spoke to her daugher in law. I did let her know that we never received the paperwork from the Dr. Beard. Daughter in law is very frustrated with Karly, she is not very honest with them. She does not tell them when she is dizzy. Family feels very strongly that she should not be driving. She states that Karly has fooled the home nurses/home PT into believing she has no issues, however, she has used the entire script of Antivert that was given on 09/21/2019. She is calling Dr. Beard and asking them to resend the office note. [id number]" Telephone encounter from 10/20/2019: Pt's btydymff-ti-vax calling in with the following concerns. Pt was seen last month with Dr. Ozzie Beard in [place] for neuropsych testing. The office sent the information to [facility] immediately following the exam. Pt's daughter in law is wondering why she has not received a call back in regards to this (regardless of whether or not the testing has been received)Pt's family is frustrated that they have not been contacted with any updates to the pt's care. They would like to know what the next step should be as far as the pt's ability to drive. Pt is still dizzy throughout the day and the family does not feel it is safe for her to drive. They do not understand why home health discharged the pt from their services when the pt is still having symptoms. Ewphaagp-up-unp is disappointed with the services they have received and feels that she may transfer the pt outside of [facility]. She declined offer to transfer to complaint line. Please advise. 1421 Telephone encounter from 10/04/2019 (NEUROLOGY): I evaluated the patient in the context of an acute vestibular syndrome follow up. Patient had vertigo in the hospital. Had resolved when I saw her. I therefore did not perform any additional testing. We did not discuss this topic and family did not voice concern for driving. I Would defer to family. If family has concerns would recommend formal driving assessment. 1433 Telephone encounter from 10/04/2019 (FAMILY PRACTICE): If driving is okay with Neurology it is okay with me. 1423 Progress Note encounter from 09/22/2019 (NEUROLOGY): "Acute vestibular syndrome Vertigo MS. Peguero is a very pleasant 84-year-old woman presenting to clinic for hospital follow-up. Patient was recently admitted [facility] for an episode of acute vertigo. Symptoms have since resolved. On examination she has no evidence of nystagmus or ataxia with vbpjeu-dv-iikp testing. There is no tremor. She is able to stand from seated position with arms crossed. She is also able to perform tandem gait. She denies headache. I did discuss the possibility of a mild TBI or concussion status post her fall which may be c ontributing to her feeling a little groggy for the last few days. Hospital workup was reassuring and discussed and reviewed with patient. No she can certainly use meclizine as needed. I did discuss the possibility of a scopolamine patch if needed also. If vertigo does return she would benefit from the vestibular rehab or balance Center. Otherwise she can follow up with me as needed for right now. Patient and family agreed plan of care had no further questions time. I did provide the family with my contact card should they have any further questions. Mike Cifuentes DO" Progress Note encounter from 05/25/2017 ([facility]): "Assessment / Plan: Patient is a 81 year old female with a 4 month history of positional type vertigo. I think her history is classic for BPPV, however head positioning tests were negative today and symptoms have been inactive over the last week. I suspect the condition may have resolved (debris degradation in endolymph) or could be waxing and waning. Remainder of the office-based vestibular examination appeared normal, no evidence of acute vestibular loss. Highly appropriate to see for return visit if positional type symptoms recur. I extensively discussed BPPV with the patient and stressed the importance of pursuing canalith repositioning maneuvers to address BPPV recurrences, maneuvers are typically effective (~95% in 1-2 sessions) and not costly. Rehabilitation potential: To be determined Goals: To be determined Approximately 1 visit/week for 12 weeks, only as needed. Plan will include reassessment including repeated positioning tests, canalith repositioning maneuvers (if needed) and patient education on self management to address potential recurrences. Patient will call clinic to schedule return visit if needed Treatment plan was reviewed with the patient who agreed with the plan of care Alexys Coleman PT, DPT, NCS Director, Otolaryngology [facility] Page #[phone]" Admission and Anticipated Discharge Date Admission Date: July 01, 2023 Subjective 07/03/2023 The patient was seen and examined in medical telemetry unit She has been sitting on a chair without any acute distress Denies any acute symptoms Specially no chest pain, shortness of breath, palpitation, no abdominal pain, nausea and or vomiting. Her weakness has been improving and she has been eating and drinking reasonably 07/04/2023 The patient was seen and examined in medical telemetry unit in presence of the family members Patient remains stable All the family members were updated about her condition and possible placement down the line Review of Systems Review of Systems: All systems reviewed and are unremarkable except as noted below Physical Exam Physical Exam: Sitting on a chair without any acute distress Constitutional: + ill appearing and + thin Eyes: PERRL, conjunctivae normal, anicteric sclerae ENMT: external ear and nose normal, oropharynx normal Neck: trachea midline, no thyromegaly Respiratory: no respiratory distress Auscultation: + diminished lung sounds and + crackles (Minimal bibasilar crackles) Cardiovascular: Rate/Rhythm: regular rate and regular rhythm; not tachycardic Heart Sounds: normal S1, normal S2 and + murmur Extremities: no edema Gastrointestinal (Abdomen): Inspection/Auscultation: normal bowel sounds; abdomen not distended Percussion/Palpation: abdomen soft; abdomen nontender Neurologic: normal touch/pain/proprioception and moves all extremities; no focal motor deficits and not confused Psychiatric: A+Ox3, euthymic affect Results & Data Results & Data Vital Signs (Past 12 Hours) Vital Signs Temp Pulse Pulse Resp BP Pulse Ox O2 Del Method 07/04/23 11:22 37.1 C 67 18 120/67 97 Room Air 07/04/23 08:00 70 07/04/23 07:39 36.9 C 71 18 144/72 H 96 Room Air 07/04/23 03:03 36.9 C 72 18 155/71 H 94 Room Air Laboratory Results Short CBC 07/04/23 Range/Units 05:44 WBC 11.75 H (4.8-10.8) K/ul Hgb 11.4 L (12.0-16.0) g/dl Hct 35.0 L (37.0-47.0) % Plt Count 374 (130-400) K/uL BMP 07/04/23 05:44 Sodium 139 Potassium 3.9 Chloride 107 Carbon Dioxide 25 BUN 13 Creatinine 0.61 Glucose 102 H Calcium 8.8 Medications Administered Current Inpatient Medications Acetaminophen (Acetaminophen 325 Mg Tab) 650 mg PO Q4H PRN PRN Reason: pain/fever Stop: 07/31/23 17:29 Last Admin: 07/02/23 04:11 Dose: 650 mg Al Hydrox/Mg Hydrox/Simethicone (Aluminum/Magnesium Susp 30 Ml Udc) 30 ml PO Q6H PRN PRN Reason: Dyspepsia Stop: 07/31/23 17:29 Artificial Tears (Artificial Tears) 1 drops OP HS MALU Stop: 07/31/23 20:59 Last Admin: 07/03/23 20:02 Dose: 1 drops Aspirin (Aspirin 81 Mg Ectab) 81 mg PO DAILY MALU Stop: 08/01/23 08:59 Last Admin: 07/04/23 07:58 Dose: 81 mg Calcium/Vitamin D (Calcium 600mg + Vit D 400 Iu Tab) 1 tab PO DAILY MALU Stop: 08/01/23 08:59 Last Admin: 07/04/23 07:58 Dose: 1 tab Docusate Sodium (Docusate Sodium 100 Mg Cap) 100 mg PO BID MALU Stop: 07/31/23 20:59 Last Admin: 07/04/23 07:58 Dose: 100 mg Heparin Sodium (Porcine) (Heparin Sod 5,000 Unit/0.5 Ml Vial) 5,000 units SQ Q12 MALU Stop: 07/31/23 20:59 Last Admin: 07/04/23 07:59 Dose: 5,000 units Losartan Potassium (Losartan Potassium 50 Mg Tab) 50 mg PO DAILY MALU Stop: 08/01/23 08:59 Last Admin: 07/04/23 07:58 Dose: 50 mg Magnesium Hydroxide (Magnesium Hydroxide Susp 30 Ml Udc) 30 ml PO Q6H PRN PRN Reason: Constipation Stop: 07/31/23 17:29 Meclizine HCl (Meclizine Hcl 25 Mg Tab) 25 mg PO TID PRN PRN Reason: Dizziness or Vertigo Stop: 07/31/23 17:29 Multivitamins (Multivitamin Tab) 1 tab PO QAM [facility] Stop: 08/01/23 08:59 Last Admin: 07/04/23 07:59 Dose: 1 tab Ondansetron HCl (Ondansetron Inj 2 Mg/Ml 2 Ml Vial) 4 mg IV Q6H PRN PRN Reason: Nausea Stop: 07/31/23 17:29 Polyethylene Glycol (Polyethylene (Miralax) 17 Gm Pack) 17 gm PO DAILY PRN PRN Reason: Constipation Stop: 07/31/23 17:29
[2023-07-04] MEDS: ARTIFICIAL TEARS OP SCH (20:51)
[2023-07-05] MEDS: MULTIVITAMIN TAB PO SCH (09:17)
[2023-07-05] MEDS: HEPARIN SOD 5,000 UNIT/0.5 ML VIAL SQ SCH ×2 (09:17→21:48)
[2023-07-05] MEDS: ASPIRIN 81 MG ECTAB PO SCH (09:17)
[2023-07-05] MEDS: CALCIUM 600MG + VIT D 400 IU TAB PO SCH (09:17)
[2023-07-05] MEDS: LOSARTAN POTASSIUM 50 MG TAB PO SCH (09:17)
[2023-07-05] MEDS: DOCUSATE SODIUM 100 MG CAP PO SCH ×2 (09:22→21:47)
--- OUTSIDE RECORDS SUMMARY | 2023-07-05 10:27 | External Medical Summary | Summary of Care ---
Author Name Unknown Organization [facility] Address [address] [place] [address] Phone [phone] Care Team Providers Care Form Stripper Name Role Phone Rajesh Platt PA-C Primary Care Provid er Reason for Visit * Reason Comments Follow Up C/o rash across uppe r chest x weeks, itchy, red. Used hydrocortisone, with not much relief. Also has a dry spot on right eyebrow. Hx; BCC's. SCC Encounter Details Date Type Department Care Team Description 02/17/2023 Office Visit Dermatology [facility] [address] [place] [address] Tara Isaacs PA-C [address] [place] [address] Rash and nonspecific skin eruption*; Actinic keratosis Allergies Active Allergy Reactions Severity Noted Date Comments Rosuvastatin Calcium Muscle pain 12/09/2017 Cyclobenzaprine Neuro complications (Please comment) Medium 03/10/2018 Knocked her out. Prednisone Flushing Low 04/24/2016 Tramadol Neuro complications (Please comment) Medium 04/30/2016 Spaced out and slept all day documented as of this encounter (statuses as of 02/17/2023) Medications Medication Sig Dispensed Refills Start Date End Date Status ONE-A-DAY WOMENS PO TABS one tablet daily 0 Active calcium-vit D 500mg-200 units per tab (OSCAL 500/200 D-3) 500-200 MG-UNIT per tabletIndications:Oth er osteoporosis Take 1 Tab by mouth daily. 100 Tab 1 02/21/2015 Active meclizine (ANTIVERT) 12.5 MG TabletIndications:Diz ziness Take 1 Tab by mouth 3 times a day as needed for Dizziness. 30 Tab 0 10/20/2019 Active losartan (COZAAR) 50 MG TabletIndications:HTN , goal below 130/80 TAKE ONE TABLET BY MOUTH ONCE DAILY 90 Tab 3 05/08/2020 Active Alendronate Sodium 70 MG Oral Tablet (Fosamax)Indications: Age-related osteoporosis without current pathological fracture TAKE 1 TABLET BY MOUTH ONCE A WEEK, 30 MINUTES BEFORE THE FIRST MEAL OF THE DAY, REMAIN UPRIGHT FOR 30 MINUTES AFTER TAKING 15 Tab 3 03/17/2021 Active Aspirin 81 MG Oral Tablet Delayed Release (Aspirin Adult Low Strength) Take 1 Tablet by mouth daily. 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 Dyslipidemia, goal LDL below 70 02/27/20 17 Primary open angle glaucoma of both eyes 08/26/2016 Hypertension goal BP (blood pressure) < 140/90 09/29/2011 Hx of basal cell carcinoma 01/13/2005 documented as of this encounter (statuses as of 02/17/2023) Resolved Problems Problem Noted Date Resolved Date Acute recurrent ethmoidal sinusitis 06/01/2018 06/10/2018 Vertigo 06/01/2018 06/10/2018 Dyslipidemia 02/01/2018 12/27/2018 Trigger finger of left thumb 12/09/201707/2018 Benign paroxysmal positional vertigo of left ear 05/25/2017 12/09/2017 Nystagmus, positional, central type 02/26/2017 12/09/2017 Dyslipidemia, goal LDL below 70 02/26/2017 02/01/2018 Vertigo 02/26/2017 12/09/2017 Overview: Circular on changes of position. Pulmonary nodule 02/26/2017 12/27/2018 Lumbar muscle pain 05/21/2016 06/09/2017 Essential hypertension with goal blood pressure less than 140/90 04/30/2016 06/09/2017 Cystocele, midline 12/11/2013 02/01/2018 Urinary frequency 12/11/2013 12/12/2014 Mixed incontinence urge and stress (male)(female ) 12/11/2013 06/13/2015 BV (bacterial vaginosis) 12/11/2013 015 Actinic keratosis 04/22/2012 06/09/2017 Overview: Right Hand with some atypia Dyslipidemia, goal LDL below 130 03/29/2012 03/10/2017 RIGHT RENAL CALCULI 2003, 01/3102/20/2011 1 CHEST NODULE NOTED ON ABDOMINAL CT 02/20/2011 06/13/2015 GLAUCOMA 11/27/2010 08/26/2016 HTN, goal below 130/80 02/14/2010 2 PREVIOUS RIGHT RENAL CALCULI '01/31 0 02/20/2011 II B HLP (goal LDL below 100) 02/14/2010 ECZEMA 02/14/2010 02/01/2018 Osteoporosis 02/14/2010 06/09/2017 OSTEOARTHRITIS 02/14/2010 02/01/2018 Tobacco user 12/09/2017 documented as of this encounter (statuses as of 02/17/2023) Immunizations Name Administration Dates Next Due Pneumococcal Conjugate Vacc, 13 Valent (Prevnar) 06/13/2015 Pneumococcal Polysaccharide PPV23 (Pneumovax) ,09/28/2007 TDAP (age 11 and older)(Adacel) 11/27/2010 Varicella Zoster Vaccine (Adult) 08/23/2012 documented as of this encounter Social History Tobacco Use Types Packs/Day Years Used Date Smoking Tobacco: Former Cigarettes 0.2 50 1 953 - 02/08/2017 Smokeless Tobacco: Never Alcohol Use Standard Drinks/Week Comments No 0 (1 standard drink = 0.6 oz pur e alcohol) Food Insecurity Answer Date Recorded Within the past 12 months, y ou worried that your food would run out before you got money to buy more. Never true 06/29/2019 Within the past 12 months, t he food you bought just didn't last and you didn't have money to get more. Never true 06/29/2019 Sex Assigned at Date Recorded Not on file Job Start Date Occupation Industry Not on file Not on file Not on file documented as of this encounter Progress Notes * Tara Isaacs PA-C - 02/17/2023 3:10 PM EDT Nursing Notes: Ginger Cortes LPN 02/17/23 1508 Signed Patient identified by name and date. Chief Complaint Patient presents with Follow Up C/o rash across upper chest x weeks, itchy, red. Used hydrocortisone, with not much relief. Also has a dry spot on right eyebrow. Hx; BCC's. SCC SUBJECTIVE: HPI: Karly Peguero is a 87 year old female who is an established patient seen for evaluation and treatment of rash. Patient last visit on 10/05/22. C/o rash on upper chest x 1-2 weeks. Pt provides a poor history but notes some warmth, redness on the upper chest over this period of time. +/- itching but admits to scratching/rubbing area throughout course. Last attempted tx includes hydrocortisone 1% cream yesterday with good improvement. Denies any new topicals on the area. No new soaps, lotions, detergent. Denies recent sun exposure to the area. Also has dry patch above R eyebrow- s/p cryo at last appt. Applying Vit C cream twice daily with increased itching of the area. REVIEW OF SYSTEMS: See HPI- all other findings negative Constitutional: (-) fever, chills, sweats, weight loss Cardiovascular: (-) lower extremity edema Skin: (-) no rash or new or changing moles or skin lesions MEDICA TIONS: Current Outpatient Medications Medication Sig Dispense Refill ONE-A-DAY WOMENS PO TABS one tablet daily calcium-vit D 500mg-200 units per tab (OSCAL 500/200 D-3) 500-200 MG-UNIT per tablet Take 1 Tabby mouth daily. 100 Tab 1 meclizine (ANTIVERT) 12.5 MG Tablet Take 1 Tab by mouth 3 times a day as needed for Dizziness. 30 Tab 0 losartan (COZAAR) 50 MG Tablet TAKE ONE TABLET BY MOUTH ONCE DAILY 90 Tab 3 Alendronate Sodium 70 MG Oral Tablet (Fosamax) TAKE 1 TABLET BY MOUTH ONCE A WEEK, 30 MINUTES BEFORE THE FIRST MEAL OF THE DAY, REMAIN UPRIGHT FOR 30 MINUTES AFTER TAKING 15 Tab 3 Aspirin 81 MG Oral Tablet Delayed Release (Aspirin Adult Low Strength) Take 1 Tablet by mouth daily. 100 Tablet 3 No current facility-administered medications for this visit. ALLERG Y: Cyclobenzaprine, Tramadol, Crestor [rosuvastatin calcium], and Prednisone OBJECTIVE: GEN: Healthy, alert, no distress, appears oriented, pleasant and cooperative. PSYCH: Appropriate mood and affect, alert SKIN: Detailed exam of face and chest was completed and are within normal limits with the followingexceptions: 1. [place] inflammatory papules scattered on chest among yellow atrophic plaques (chronic- noted in last exam photos) on chest 2. rough pink scaling patch R lateral brow ASSESSMENT/PLAN: 1. Dermatitis, r/o allergic contact dermatitis vs arthropod bite vs actinic dermatitis vs drug eruption vs other Tangential biopsy of the lesion noted above to establish and confirm diagnosis. The procedure, risks, benefits, alternatives and expected outcomes were discussed with the patient and verbal consent was obtained. Patient identified, procedure verified, site identified and verified. Confirmed immediately prior to procedure. Area prepped with alcohol and anesthetized with Ropivacaine 2mg/mL (0.2%). Biopsy of lesion performed. 20% AlCl and bandaging applied. Specimen sent to pathology. Patient instructed in routine post-op care. - may continue hydrocortisone 1% cream BID PRN for itching 2. Actinic Keratosis -Educated on premalignant potential and small risk of developing into a SCC -Discussed treatment options including cryotherapy. Patient prefers cryotherapy. -Cryosurgery procedure, risks and benefits explained to the patient. Specifically, side effects including blistering, hyperpigmentation, hypopigmentation, scar or pain at procedure site was discussedand patient verbalized understanding. Consent was obtained by me. Patient, site and procedure verified. Cryotherapy was performed with Liquid Nitrogen via cryo spray unit to 1 lesions. Location notedin physical exam. Post op course explained. -Counseled on importance of sun protection with sunscreen of at least SPF 30 and protective clothing. -Discussed importance of yearly skin checks and to contact our office if she notices any new or changes skin lesion. - advised against use of Vit C creams on area Patient alone today. Follow-up: as scheduled Photos taken, patient consented to photos taken. Applicable photos (if any) and chart reviewed by Dr. Nabor Banda The patient was encouraged to contact me with any further questions or concerns. Tara Isaacs PA-C 02/17/2023 3:10 PM documented in this encounter Nursing Notes * Ginger Cortes LPN - 02/17/2023 3:08 PM EDT Patient identified by name and date. Chief Complaint Patient presents with Follow Up C/o rash across upper chest x weeks, itchy, red. Used hydrocortisone, with not much relief. Also has a dry spot on right eyebrow. Hx; BCC's. SCC documented in this encounter Plan of Treatment Upcoming Encounters Date Type Specialty Care Team Description 10/06/2023 Office Visit Dermatology Tara Isaacs PA-C [address] [facility] [place] [id number] Pending Results Name Type Priority Associated Diagnoses Date /Time SURGICAL PATHOLOGY Pathology Routine Rash and nonspecific skin eruption 02/17/2023 3:30 PM EDT Health Maintenance Due Date Last Done Comments COVID-19 Vaccine (#1) 01/11/1936 Albumin/Creatinine Ratio 1952 Zoster Vaccines (2 of 3) 10/18/2012 08/23/2012 Depression Screening, Annual for Pts 12 and Over 03/16/2020 03/16/2019, 04/30/2016 DXA Scan 03/21/2020 03/21/2018, 01/21, 01/06/2013, Additional history exists Mammogram 07/13/2020 07/13/2019, 03/2018, 06/18/2017, Additional history exists DTaP,Tdap,and Td Vaccines (2 - Td or Tdap) 11/27/2020 11/27/2010 Influenza Vaccine (FLU shot) (Season Ended) 2023 Pneumococcal Vaccine: 65+ Years Completed 06/09/2017, 06/13/2015, 09/28/2007 VITAMIN D LEVEL ONCE IN A LIFETIME-USE SMARTSET# [id number] Completed 09/21/2019, 12/06/2015, 03/23/2011, Additional history exists GARDASIL-HPV IMMUNIZATION SERIES Aged Out No longer eligible based on patient's age to complete this topic Hepatitis B Aged Out No longer eligi ble based on patient's age to complete this topic MENINGOCOCCAL (MENACTRA/MENVEO) Aged Out No longer eligible based on patient's age to complete this topic documented as of this encounter Medical Devices Not on filedocumented as of this encounter Visit Diagnoses Diagnosis Rash and nonspecific skin eruption- Primary Rash and other nonspecific skin eruption Actinic keratosis documented in this encounter Care Teams Form Stripper Relationship Specialty Start Date End Date Rajesh Platt PA-C [address] [facility] [place] [address] PCP - General Physician Account Development Associate 04/01/22 documented as of this encounter
--- OUTSIDE RECORDS SUMMARY | 2023-07-05 10:27 | External Medical Summary | Summary of Care ---
Author Name Unknown Organization [facility] Address [address] [place] [address] Phone [phone] Care Team Providers Care Mortgage Clerk Name Role Phone Rajesh Platt PA-C Primary Care Provid er Reason for Visit * Reason Onset Date Comments Test Results Biopsy 02/26/2023 Encounter Details Date Type Department Care Team Description 02/26/2023 Telephone Dermatology [facility] [address] [place] [address] Tara Isaacs PA-C [address] [place], [place] [id number] Test Results Biopsy Allergies Active Allergy Reactions Severity Noted Date Comments Rosuvastatin Calcium Muscle pain 12/09/2017 Cyclobenzaprine Neuro complications (Please comment) Medium 03/10/2018 Knocked her out. Prednisone Flushing Low 04/24/2016 Tramadol Neuro complications (Please comment) Medium 04/30/2016 Spaced out and slept all day documented as of this encounter (statuses as of 03/10/2023) Medications Medication Sig Dispensed Refills Start Date [...] as of this encounter (statuses as of 03/10/2023) Active Problems Problem Noted Date Refused influenza [...] as of this encounter (statuses as of 03/10/2023) Resolved Problems Problem Noted Date Resolved Date [...] as of this encounter (statuses as of 03/10/2023) Immunizations Name Administration Dates Next Due Pneumococcal [...] on file documented as of this encounter Miscellaneous Notes * Telephone Encounter - Ginger Cortes LPN - 03/10/2023 9:56 AM EDT Biopsy results given to patient. She reported "rash is getting better". Recommended to call if recurrence. * Telephone Encounter - Ginger Cortes LPN - 03/05/2023 2:28 PM EDT Left message to return call. * Telephone Encounter - Ginger Cortes LPN - 02/26/2023 12:03 PM EDT Left message to return call. * Telephone Encounter - Ginger Cortes LPN - 02/26/2023 12:03 PM EDT ----- Message from Tara Isaacs PA-C sent at 02/26/2023 10:03 AM EDT ----- A. 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 (See comment) Comment: The histologic findings are not entirely specific, but considerations include a manifestation of a benign lichenoid keratosis, a bullous lichenoid drug-related eruption, and bullous lichen planus. Bullous pemphigoid is not favored, but if there is clinical concern for an immunobullous process, a repeat biopsy submitted in [facility] for direct immunofluorescence studies, may be warranted. Please let pt know bx suggests non-specific findings- could be a benign keratosis reaction or a blistering type reaction to a medication (even OTC). It does not appear to be autoimmune related at all. If rash recurs, recommend re-bx documented in this encounter Plan of Treatment Upcoming Encounters Date Type Specialty Care Team Description 10/06/2023 Office Visit Dermatology Tara Isaacs PA-C [address] [facility] [place] [address] Health Maintenance Due Date Last Done Comments COVID-19 Vaccine (#1) 01/11/1936 Albumin/Creatinine Ratio 1952 Zoster Vaccines (2 of 3) 10/18/2012 08/23/2012 Depression Screening, Annual for Pts 12 and Over 03/16/2020 03/16/2019, 04/30/2016 DXA Scan 03/21/2020 03/21/2018, 01/21, 01/06/2013, Additional history exists Mammogram 07/13/2020 07/13/2019, 03/2018, 06/18/2017, Additional history exists DTaP,Tdap,and Td Vaccines (2 - Td or Tdap) 11/27/2020 11/27/2010 Influenza Vaccine (FLU shot) (#1) 2023 Pneumococcal Vaccine: 65+ Years Completed 06/09/2017, 06/13/2015, 09/28/2007 VITAMIN D LEVEL ONCE IN A LIFETIME-USE SMARTSET# [id number] Completed 09/21/2019, 12/06/2015, 03/23/2011, Additional history exists [...] Not on filedocumented as of this encounter Care Teams Mortgage Clerk Relationship Specialty Start Date End Date Rajesh Platt PA-C [address] [facility] [place] [address] PCP - General Physician Diesel Lube Tech 04/01/22 documented as of this encounter
--- OUTSIDE RECORDS SUMMARY | 2023-07-05 10:27 | External Medical Summary | Summary of Care ---
Author Name Unknown Organization [facility] Address [address] [place] [address] Phone [phone] Care Team Providers Care Room Cooler Installer Name Role Phone Rajesh Platt PA-C Primary Care Provid er Reason for Visit * Reason Comments Follow Up C/o rash across uppe r chest x weeks, itchy, red. Used hydrocortisone, with not much relief. Also has a dry spot on right eyebrow. Hx; BCC's. SCC Encounter Details Date Type Department Care Team Description 02/17/2023 Office Visit Dermatology [facility] [address] [place] [address] Tara Isaacs PA-C [address] [place] [address] Rash and nonspecific skin eruption*; [...] 02/17/2023 3:10 PM EDT Nursing Notes: Ginger Corets LPN 02/17/23 1508 Signed Patient identified by [...] within normal limits with the followingexceptions: 1. [place] inflammatory papules scattered on chest among yellow [...] concerns. Tara Isaacs PA-C 02/17/2023 3:10 PM * Nabor Banda MD - 02/17/2023 3:10 PM EDT I have seen and examined the patient via teledermatology review of chart note and photos with Tara Isaacs PA-C. I have reviewed and agree with the assessment and plan. Nabor Banda MD documented in this encounter Nursing Notes * [...] 10/06/2023 Office Visit Dermatology Tara Isaacs PA-C [address] [facility] [place] [address] Pending Results Name Type Priority Associated Diagnoses [...] D LEVEL ONCE IN A LIFETIME-USE SMARTSET# [id number] Completed 09/21/2019, 12/06/2015, 03/23/2011, Additional history exists [...] Not on filedocumented as of this encounter Procedures Procedure Name Priority Date/Time Associated Diagnosis Comments DERM IMAGE (SITE) Routine 02/17/2023 Rash and nonspecific skin eruption documented in this encounter Results * DERM IMAGE (SITE) (02/17/2023) 02/17/2023 Tara Isaacs PA-C DIGITAL MARILYN TOGRAPHY documented in this encounter Visit Diagnoses Diagnosis Rash and nonspecific skin eruption- Primary Rash and other nonspecific skin eruption Actinic keratosis documented in this encounter Care Teams Room Cooler Installer Relationship Specialty Start Date End Date Rajesh Platt PA-C [address] [place] [address] [place] [address] PCP - General Physician Perishable Fruit Inspector 04/01/22 documented as of this encounter
--- NOTE | 2023-07-05 16:36 | Hospitalist Progress Note ---
Date of Service July 05, 2023 Assessment & Plan (1) Generalized weakness: Plan: She was admitted on 07/01/2023 with weakness and confusion with history of dementia No apparent infection was found to complicate general weakness Noted to be mildly dehydrated with BUN of 26 Received adequate amount of IV fluid and the weakness improved Also received potassium supplement to improve her general condition She has had physical therapy and has been doing much better Has had occupational therapy-recommended if required ADL's can be met then she can be discharged Family members are worried that she might not do good alone at home and wanted to have placement The patient also feels that she may be better off going to rehab for short-term We will try for placement Weakness may or may not improve down the line even with physical therapy She is not safe to discharge home-Will need placement She has been doing better with physical therapy He needs more help with occupational therapy-activities of daily living He definitely carries a risk of fall if left alone (2) Weight loss: Plan: Weight loss has been going on for some time Her appetite is reasonable but she does not finish the meal No evidence of any intraluminal cancer with history of possible pancreatic mass which has been ruled out She was advised to eat and drink more (3) Confusion: Plan: Has vascular dementia Presented with confusion that seems to be cleared up subsequently She has history of dementia as per family members-further documentation of that he is as below from my colleague earlier MRI brain negative for acute process on this admission CT AP without abdominal mass on this admission CT chest with small RLL (4mm) nodule and bronchiectasis TSH remains normal Resp panel negative, UA negative, blood cultures NGTD-no signs and or symptoms of infection Order B12, folate-have been canceled and will reorder for tomorrow morning that is 07/04/2023, Iron levels have been minimally low at 34 Her confusion seems to be cleared She remains mentally clear during examination Gets occasionally forgetful otherwise no acute delirium (4) HTN (hypertension): Plan: Remains controlled We will continue current medications #Complex psychosocial situation Years of documentation of son and daughter in law seeking placement, expressing concern over "safety" Neuropsych testing in 2019 negative for cognitive impairment to any degree (see below) Neurology followed for vertigo, transient in nature, but no imaging findings since 2017 for acute stroke or other acute abnormalities MRI brain negative for acute process on this admission CT AP without abdominal mass on this admission CT chest with small RLL (4mm) nodule and bronchiectasis TSH WNL Resp panel negative, UA negative, blood cultures NGTD PT/OT without signs of weakness appreciated #Bronchiectasis #Lung Nodule -4mm lung nodule RLL -Outpatient follow up for routine imaging -Patient on Room air without resp concerns, CT -No antibiotics needed #Chronic dizziness/vertigo No history of vertebral insufficiency, concerns ruled out; 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 [facility] and been encouraged to follow up OP with [facility] for concerns. Not on statin 2/2 intolerance Continue ASA Trial of meclizine Strongly advised to take precaution to avoid fall and take time to initiate any movement-discussed with the patient and the family members #Osteoporosis -Continue alendronate q wednesday DVT ppx: SQ Heparin DNR/DNI We will discuss with the family members when available Detailed discussion is done with the family members Awaiting placement-discussed with the son again (5) Other specified problems related to primary support group: Plan: As documented below Plan Ms. Peguero is an 87-year-old female who has a significant past medical history of HTN, age-related osteoporosis, BPPV, statin intolerance who presents to ED secondary to generalized weakness and lack of appetite x2 weeks. Patient follows with PCP at [facility], [place], [place]. 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 At that time she also had significantly elevated LFTs. Family states unhappy with care and wish to pursue further imaging regarding this, but nobody would. Patient also recently seen at [facility] 5 days ago, twice in 1 day, due to worsened progressive weakness, increased confusion and inability to care for self at home. Due to no significant abnormality found she was discharged home and told maybe she had a, "TIA." Currently patient lives alone with her cat, ambulates with a walker occasionally and has family close by. Kporsfww-ci-rmp and granddaughter at bedside elicit patient does have underlying dementia which is worsening and she is unable to care for self at home. Family is interested in placement.They further report approximately 20 pound weight loss in the last 1 month. They are also interested in pursuing further work-up regarding this, "pancreatic mass as well as requesting an MRI of brain to rule out possible stroke." " Patient appears cognitively intact. She is AOx4. She denies any acute issues. She wishes to return home and does not desire placement at this time. Son and wqeiuxud-wo-qgh actively engaged in care, with multiple notes documenting frequent concerns of "safety." They state that they are "getting different reports" and "other doctors say [the patient] needs 24/7 support" and the patient "cannot live with them." It was expressed to son and diutrfww-ds-ett that review of records available as well as current evaluation as not revealed any chronic cognitive illnesses that would require medical justification for placement. It was expressed that acute illness, like common cold/flu like symptoms, can cause acute decline in elderly with prompt recovery of symptoms when treated (example, IVF). Son and dpntfqqj-as-rgf expressed extreme, apparent dissatisfaction with report of normal imaging, including unremarkable MRI and unremarkable CT scan. Informed every one in the room (including nurse, watch case polisher, son, and daughter in law) that the plan going forward would include formal psych eval for cognitive impairment; monitoring for behavioral disturbances, to include confusion; as well as daily assessment of understanding. If the aforementioned does not yield any signs of impairment that warrant 24/7 support, then will discharged home with home services--as well as a request from [facility] for courtesy visit to assess state of home, patient's wellbeing outside of hospitalization. Kugsywhg-cb-wum abruptly left conversation. Son agreed to aforementioned plan. #Complex psychosocial situation Years of documentation of son and daughter in law seeking placement, expressing concern over "safety" Neuropsych testing in 2020 negative for cognitive impairment to any degree (see below) Neurology followed for vertigo, transient in nature, but no imaging findings since 2017 for acute stroke or other acute abnormalities MRI brain negative for acute process on this admission CT AP without abdominal mass on this admission CT chest with small RLL (4mm) nodule and bronchiectasis TSH WNL Resp panel negative, UA negative, blood cultures NGTD PT/OT without signs of weakness appreciated Order B12, folate, iron to am labs #Bronchiectasis #Lung Nodule -4mm lung nodule RLL -Outpatient follow up for routine imaging -Patient on Room air without resp concerns, CTM #Hypokalemia *resolved replete, follow in am. 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 Has participated in [facility] and been encouraged to follow up OP with [facility] for concerns. Not on statin 2/2 intolerance Continue ASA Trial of meclizine #Osteoporosis -Continue alendronate q wednesday DVT ppx: SQ Heparin DNR/DNI The following paragraphs have been copied over from outside [facility] EMR from visits: Neuropsychological from 10/04/2019 OZZIE BEARD PHD JAY VALLECILLO: "The results of both tests that her memory ability falls in the average range. She had minor difficulty with several problems but she was able to self correct. There were no indications of memory impairment on these tests." Telephone encounter from 10/20/2019: " I called and spoke to her daugher in law. I did let her know that we never received the paperwork from the Dr. Beard. Daughter in law is very frustrated with Karly, she is not very honest with them. She does not tell them when she is dizzy. Family feels very strongly that she should not be driving. She states that Karly has fooled the home nurses/home PT into believing she has no issues, however, she has used the entire script of Antivert that was given on 09/21/2019. She is calling Dr. Beard and asking them to resend the office note. [id number]" Telephone encounter from 10/20/2019: Pt's lbjziowd-ok-ham calling in with the following concerns. Pt was seen last month with Dr. Ozzie Beard in [place] for neuropsych testing. The office sent the information to [facility] immediately following the exam. Pt's daughter in law is wondering why she has not received a call back in regards to this (regardless of whether or not the testing has been received)Pt's family is frustrated that they have not been contacted with any updates to the pt's care. They would like to know what the next step should be as far as the pt's ability to drive. Pt is still dizzy throughout the day and the family does not feel it is safe for her to drive. They do not understand why home health discharged the pt from their services when the pt is still having symptoms. Tybxzfnm-bh-erf is disappointed with the services they have received and feels that she may transfer the pt outside of [facility]. She declined offer to transfer to complaint line. Please advise. 1421 Telephone encounter from 10/04/2019 (NEUROLOGY): I evaluated the patient in the context of an acute vestibular syndrome follow up. Patient had vertigo in the hospital. Had resolved when I saw her. I therefore did not perform any additional testing. We did not discuss this topic and family did not voice concern for driving. I Would defer to family. If family has concerns would recommend formal driving assessment. 1433 Telephone encounter from 10/04/2019 (FAMILY PRACTICE): If driving is okay with Neurology it is okay with me. 1423 Progress Note encounter from 09/22/2019 (NEUROLOGY): "Acute vestibular syndrome Vertigo MS. Peguero is a very pleasant 84-year-old woman presenting to clinic for hospital follow-up. Patient was recently admitted [facility] for an episode of acute vertigo. Symptoms have since resolved. On examination she has no evidence of nystagmus or ataxia with [id number] testing. There is no tremor. She is able to stand from seated position with arms crossed. She is also able to perform tandem gait. She denies headache. I did discuss the possibility of a mild TBI or concussion status post her fall which may be contributing to her feeling a little groggy for the last few days. Hospital workup was reassuring and discussed and reviewed with patient. No she can certainly use meclizine as needed. I did discuss the possibility of a scopolamine patch if needed also. If vertigo does return she would benefit from the vestibular rehab or [facility] Center. Otherwise she can follow up with me as needed for right now. Patient and family agreed plan of care had no further questions time. I did provide the family with my contact card should they have any further questions. Mike Cifuentes DO" Progress Note encounter from 05/25/2017 ([facility]): "Assessment / Plan: Patient is a 81 year old female with a 4 month history of positional type sky tigo. I think her history is classic for BPPV, however head positioning tests were negative today and symptoms have been inactive over the last week. I suspect the condition may have resolved (debris degradation in endolymph) or could be waxing and waning. Remainder of the office-based vestibular examination appeared normal, no evidence of acute vestibular loss. Highly appropriate to see for return visit if positional type symptoms recur. I extensively discussed BPPV with the patient and stressed the importance of pursuing canalith repositioning maneuvers to address BPPV recurrences, maneuvers are typically effective (~95% in 1-2 sessions) and not costly. Rehabilitation potential: To be determined Goals: To be determined Approximately 1 visit/week for 12 weeks, only as needed. Plan will include reassessment including repeated positioning tests, canalith repositioning maneuvers (if needed) and patient education on self management to address potential recurrences. Patient will call clinic to schedule return visit if needed Treatment plan was reviewed with the patient who agreed with the plan of care Alexys Coleman PT, DPT, NCS Director, Otolaryngology [facility] Page #[phone]" Admission and Anticipated Discharge Date Admission Date: July 01, 2023 Subjective 07/03/2023 The patient was seen and examined in medical telemetry unit She has been sitting on a chair without any acute distress Denies any acute symptoms Specially no chest pain, shortness of breath, palpitation, no abdominal pain, nausea and or vomiting. Her weakness has been improving and she has been eating and drinking reasonably 07/04/2023 The patient was seen and examined in medical telemetry unit in presence of the family members Patient remains stable All the family members were updated about her condition and possible placement down the line 07/05/2023 The patient was seen and examined in medical telemetry unit entrance of the son She has been stable and awaiting placement She will need to go to SNF/personal fdc for continued care Review of Systems Review of Systems: All systems reviewed and are unremarkable except as noted below Physical Exam Physical Exam: Sitting on a chair without any acute distress Constitutional: + ill appearing and + thin Eyes: PERRL, conjunctivae normal, anicteric sclerae ENMT: external ear and nose normal, oropharynx normal Neck: trachea midline, no thyromegaly Respiratory: no respiratory distress Auscultation: + diminished lung sounds and + crackles (Minimal bibasilar crackles) Cardiovascular: Rate/Rhythm: regular rate and regular rhythm; not tachycardic Heart Sounds: normal S1, normal S2 and + murmur Extremities: no edema Gastrointestinal (Abdomen): Inspection/Auscultation: normal bowel sounds; abdomen not distended Percussion/Palpation: abdomen soft; abdomen nontender Neurologic: normal touch/pain/proprioception and moves all extremities; no focal motor deficits and not confused Psychiatric: A+Ox3, euthymic affect Results & Data Results & Data Vital Signs (Past 12 Hours) Vital Signs Temp Pulse Pulse Pulse Resp BP Pulse Ox 07/05/23 15:54 36.7 C 64 16 138/77 94 07/05/23 15:48 69 07/05/23 12:51 75 07/05/23 12:00 36.7 C 73 14 146/48 H 94 07/05/23 09:00 07/05/23 07:42 37.2 C 69 17 138/77 92 Pulse Ox O2 Del Method O2 Del Method 07/05/23 15:54 Room Air 07/05/23 15:48 07/05/23 12:51 07/05/23 12:00 Room Air 07/05/23 09:00 92 Room Air 07/05/23 07:42 Room Air Medications Administered Current Inpatient Medications Acetaminophen (Acetaminophen 325 Mg Tab) 650 mg PO Q4H PRN PRN Reason: pain/fever Stop: 07/31/23 17:29 Last Admin: 07/02/23 04:11 Dose: 650 mg Al Hydrox/Mg Hydrox/Simethicone (Aluminum/Magnesium Susp 30 Ml Udc) 30 ml PO Q6H PRN PRN Reason: Dyspepsia Stop: 07/31/23 17:29 Artificial Tears (Artificial Tears) 1 drops OP HS MALU Stop: 07/31/23 20:59 Last Admin: 07/04/23 20:51 Dose: 1 drops Aspirin (Aspirin 81 Mg Ectab) 81 mg PO DAILY MALU Stop: 08/01/23 08:59 Last Admin: 07/05/23 09:17 Dose: 81 mg Calcium/Vitamin D (Calcium 600mg + Vit D 400 Iu Tab) 1 tab PO DAILY MALU Stop: 08/01/23 08:59 Last Admin: 07/05/23 09:17 Dose: 1 tab Docusate Sodium (Docusate Sodium 100 Mg Cap) 100 mg PO BID [facility] Stop: 07/31/23 20:59 Last Admin: 07/05/23 09:22 Dose: Not Given Heparin Sodium (Porcine) (Heparin Sod 5,000 Unit/0.5 Ml Vial) 5,000 units SQ Q12 MALU Stop: 07/31/23 20:59 Last Admin: 07/05/23 09:17 Dose: 5,000 units Losartan Potassium (Losartan Potassium 50 Mg Tab) 50 mg PO DAILY MALU Stop: 08/01/23 08:59 Last Admin: 07/05/23 09:17 Dose: 50 mg Magnesium Hydroxide (Magnesium Hydroxide Susp 30 Ml Udc) 30 ml PO Q6H PRN PRN Reason: Constipation Stop: 07/31/23 17:29 Meclizine HCl (Meclizine Hcl 25 Mg Tab) 25 mg PO TID PRN PRN Reason: Dizziness or Vertigo Stop: 07/31/23 17:29 Multivitamins (Multivitamin Tab) 1 tab PO QAM [facility] Stop: 08/01/23 08:59 Last Admin: 07/05/23 09:17 Dose: 1 tab Ondansetron HCl (Ondansetron Inj 2 Mg/Ml 2 Ml Vial) 4 mg IV Q6H PRN PRN Reason: Nausea Stop: 07/31/23 17:29 Polyethylene Glycol (Polyethylene (Miralax) 17 Gm Pack) 17 gm PO DAILY PRN PRN Reason: Constipation Stop: 07/31/23 17:29
[2023-07-05] MEDS: ARTIFICIAL TEARS OP SCH (21:48)
[2023-07-06] MEDS: ASPIRIN 81 MG ECTAB PO SCH (10:27)
[2023-07-06] MEDS: HEPARIN SOD 5,000 UNIT/0.5 ML VIAL SQ SCH ×2 (10:27→19:49)
[2023-07-06] MEDS: CALCIUM 600MG + VIT D 400 IU TAB PO SCH (10:27)
[2023-07-06] MEDS: MULTIVITAMIN TAB PO SCH (10:28)
[2023-07-06] MEDS: LOSARTAN POTASSIUM 50 MG TAB PO SCH (10:28)
[2023-07-06] MEDS: DOCUSATE SODIUM 100 MG CAP PO SCH ×2 (10:31→19:49)
--- NOTE | 2023-07-06 14:22 | Hospitalist Progress Note ---
Date of Service July 06, 2023 Assessment & Plan (1) Generalized weakness: Plan: She was admitted on 07/01/2023 with weakness and confusion with history of dementia No apparent infection was found to complicate general weakness Noted to be mildly dehydrated with BUN of 26 Received adequate amount of IV fluid and the weakness improved Also received potassium supplement to improve her general condition She has had physical therapy and has been doing much better Has had occupational therapy-recommended if required ADL's can be met then she can be discharged Family members are worried that she might not do good alone at home and wanted to have placement The patient also feels that she may be better off going to rehab for short-term We will try for placement Weakness may or may not improve down the line even with physical therapy She is not safe to discharge home-Will need placement She has been doing better with physical therapy He needs more help with occupational therapy-activities of daily living He definitely carries a risk of fall if left alone Awaiting placement (2) Weight loss: Plan: Weight loss has been going on for some time Her appetite is reasonable but she does not finish the meal No evidence of any intraluminal cancer with history of possible pancreatic mass which has been ruled out She was advised to eat and drink more She has been eating and drinking reasonably (3) Confusion: Plan: Has vascular dementia Presented with confusion that seems to be cleared up subsequently She has history of dementia as per family members-further documentation of that he is as below from my colleague earlier MRI brain negative for acute process on this admission CT AP without abdominal mass on this admission CT chest with small RLL (4mm) nodule and bronchiectasis TSH remains normal Resp panel negative, UA negative, blood cultures NGTD-no signs and or symptoms of infection Order B12, folate-have been canceled and will reorder for tomorrow morning that is 07/04/2023, Iron levels have been minimally low at 34 Her confusion seems to be cleared She remains mentally clear during examination Gets occasionally forgetful otherwise no acute delirium (4) HTN (hypertension): Plan: Remains controlled We will continue current medications Blood pressure remains stable #Complex psychosocial situation Years of documentation of son and daughter in law seeking placement, expressing concern over "safety" Neuropsych testing in 2019 negative for cognitive impairment to any degree (see below) Neurology followed for vertigo, transient in nature, but no imaging findings since 2017 for acute stroke or other acute abnormalities MRI brain negative for acute process on this admission CT AP without abdominal mass on this admission CT chest with small RLL (4mm) nodule and bronchiectasis TSH WNL Resp panel negative, UA negative, blood cultures NGTD PT/OT without signs of weakness appreciated #Bronchiectasis #Lung Nodule -4mm lung nodule RLL -Outpatient follow up for routine imaging -Patient on Room air without resp concerns, CT -No antibiotics needed #Chronic dizziness/vertigo No history of vertebral insufficiency, concerns ruled out; 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 [facility] and been encouraged to follow up OP with [facility] for concerns. Not on statin 2/2 intolerance Continue ASA Trial of meclizine Strongly advised to take precaution to avoid fall and take time to initiate any movement-discussed with the patient and the family members #Osteoporosis -Continue alendronate q wednesday DVT ppx: SQ Heparin DNR/DNI We will discuss with the family members when available Detailed discussion is done with the family members Awaiting placement-discussed with the son again Discussed with the son again on 07/05/2023-she will be going to skilled care/personal care (5) Other specified problems related to primary support group: Plan: As documented below Plan Ms. Peguero is an 87-year-old female who has a significant past medical history of HTN, age-related osteoporosis, BPPV, statin intolerance who presents to ED secondary to generalized weakness and lack of appetite x2 weeks. Patient follows with PCP at [facility], [place]. 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 At that time she also had significantly elevated LFTs. Family states unhappy with care and wish to pursue further imaging regarding this, but nobody would. Patient also recently seen at [facility] 5 days ago, twice in 1 day, due to worsened progressive weakness, increased confusion and inability to care for self at home. Due to no significant abnormality found she was discharged home and told maybe she had a, "TIA." Currently patient lives alone with her cat, ambulates with a walker occasionally and has family close by. Uuphceik-fv-kvs and granddaughter at bedside elicit patient does have underlying dementia which is worsening and she is unable to care for self at home. Family is interested in placement.They further report approximately 20 pound weight loss in the last 1 month. They are also interested in pursuing further work-up regarding this, "pancreatic mass as well as requesting an MRI of brain to rule out possible stroke." " Patient appears cognitively intact. She is AOx4. She denies any acute issues. She wishes to return home and does not desire placement at this time. Son and gfjwnkem-fk-bhi actively engaged in care, with multiple notes documenting frequent concerns of "safety." They state that they are "getting different reports" and "other doctors say [the patient] needs 24/7 support" and the patient "cannot live with them." It was expressed to son and jqnwrnob-vm-utf that review of records available as well as current evaluation as not revealed any chronic cognitive illnesses that would require medical justification for placement. It was expressed that acute illness, like common cold/flu like symptoms, can cause acute decline in elderly with prompt recovery of symptoms when treated (example, IVF). Son and uxlomybn-od-mka expressed extreme, apparent dissatisfaction with report of normal imaging, including unremarkable MRI and unremarkable CT scan. Informed every one in the room (including nurse, showcase trimmer, son, and daughter in law) that the plan going forward would include formal psych eval for cognitive impairment; monitoring for behavioral disturbances, to include confusion; as well as daily assessment of understanding. If the aforementioned does not yield any signs of impairment that warrant 24/7 support, then will discharged home with home services--as well as a request from [facility] for courtesy visit to assess state of home, patient's wellbeing outside of hospitalization. Uvgzhiws-yy-cph abruptly left conversation. Son agreed to aforementioned plan. #Complex psychosocial situation Years of documentation of son and daughter in law seeking placement, expressing concern over "safety" Neuropsych testing in 2020 negative for cognitive impairment to any degree (see below) Neurology followed for vertigo, transient in nature, but no imaging findings since 2017 for acute stroke or other acute abnormalities MRI brain negative for acute process on this admission CT AP without abdominal mass on this admission CT chest with small RLL (4mm) nodule and bronchiectasis TSH WNL Resp panel negative, UA negative, blood cultures NGTD PT/OT without signs of weakness appreciated Order B12, folate, iron to am labs #Bronchiectasis #Lung Nodule -4mm lung nodule RLL -Outpatient follow up for routine imaging -Patient on Room air without resp concerns, CTM #Hypokalemia *resolved replete, follow in am. 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 Has [facility] and been encouraged to follow up OP with [facility] for concerns. Not on statin 2/2 intolerance Continue ASA Trial of meclizine #Osteoporosis -Continue alendronate q wednesday DVT ppx: SQ Heparin DNR/DNI The following paragraphs have been copied over from outside [facility] EMR from visits: Neuropsychological from 10/04/2019 JAY PAUL PHD: "The results of both tests that her memory ability falls in the average range. She had minor difficulty with several problems but she was able to self correct. There were no indications of memory impairment on these tests." Telephone encounter from 10/20/2019: " I called and spoke to her daugher in law. I did let her know that we never received the paperwork from the Dr. Knutson. Daughter in law is very frustrated with Karly, she is not very honest with them. She does not tell them when she is dizzy. Family feels very strongly that she should not be driving. She states that [facility]arly has fooled the home nurses/home PT into believing she has no issues, however, she has used the entire script of Antivert that was given on 09/21/2019. She is calling Dr. Knutson and asking them to resend the office note. [id number]" Telephone encounter from 10/20/2019: Pt's ksinnhgo-td-utg calling in with the following concerns. Pt was seen last month with Dr. Zach Knutson in [place] for neuropsych testing. The office sent the information to [facility] immediately following the exam. Pt's daughter in law is wondering why she has not received a call back in regards to this (regardless of whether or not the testing has been received)Pt's family is frustrated that they have not been contacted with any updates to the pt's care. They would like to know what the next step should be as far as the pt's ability to drive. Pt is still dizzy throughout the day and the family does not feel it is safe for her to drive. They do not understand why home health discharged the pt from their services when the pt is still having symptoms. Wwkasaxg-gh-vcb is disappointed with the services they have received and feels that she may transfer the pt outside of [facility]. She declined offer to transfer to complaint line. Please advise. 1421 Telephone encounter from 10/04/2019 (NEUROLOGY): I evaluated the patient in the context of an acute vestibular syndrome follow up. Patient had vertigo in the hospital. Had resolved when I saw her. I therefore did not perform any additional testing. We did not discuss this topic and family did not voice concern for driving. I Would defer to family. If family has concerns would recommend formal driving assessment. 1433 Telephone encounter from 10/04/2019 (FAMILY PRACTICE): If driving is okay with Neurology it is okay with me. 1423 Progress Note encounter from 09/22/2019 (NEUROLOGY): "Acute vestibular syndrome Vertigo MS. Peguero is a very pleasant 84-year-old woman presenting to clinic for hospital follow-up. Patient was recently admitted [facility] for an episode of acute vertigo. Symptoms have since resolved. On examination she has no evidence of nystagmus or ataxia with arpotx-ke-dzlj testing. There is no tremor. She is able to stand from seated position with arms crossed. She is also able to perform tandem gait. She denies headache. I did discuss the possibility of a mild TBI or concussion status post her fall which may be contributing to her feeling a little groggy for the last few days. Hospital workup was reassuring and discussed and reviewed with patient. No she can certainly use meclizine as needed. I did discuss the possibility of a scopolamine patch if needed also. If vertigo does return she would benefit from the vestibular rehab or balance Center. Otherwise she can follow up with me as needed for right now. Patient and family agreed plan of care had no further questions time. I did provide the family with my contact card should they have any further questions. Mike [place], DO" Progress Note encounter from 05/25/2017 ([facility]): "Assessment / Plan: Patient is a 81 year old female with a 4 month history of positional type vertigo. I think her history is classic for BPPV, however head positioning tests were negative today and symptoms have been inactive over the last week. I suspect the condition may have resolved (debris degradation in endolymph) or could be waxing and waning. Remainder of the office-based vestibular examination appeared normal, no evidence of acute vestibular loss. Highly appropriate to see for return visit if positional type symptoms recur. I extensively discussed BPPV with the patient and stressed the importance of pursuing canalith repositioning maneuvers to address BPPV recurrences, maneuvers are typically effective (~95% in 1-2 sessions) and not costly. Rehabilitation potential: To be determined Goals: To be determined Approximately 1 visit/week for 12 weeks, only as needed. Plan will include reassessment including repeated positioning tests, canalith repositioning maneuvers (if needed) and patient education on self management to address potential recurrences. Patient will call clinic to schedule return visit if needed Treatment plan was reviewed with the patient who agreed with the plan of care Alexys Coleman PT, DPT, NCS Director, Otolaryngology [facility] Page #[phone]" Admission and Anticipated Discharge Date Admission Date: July 01, 2023 Subjective 07/03/2023 The patient was seen and examined in medical telemetry unit She has been sitting on a chair without any acute distress Denies any acute symptoms Specially no chest pain, shortness of breath, palpitation, no abdominal pain, nausea and or vomiting. Her weakness has been improving and she has been eating and drinking reasonably 07/04/2023 The patient was seen and examined in medical telemetry unit in presence of the family members Patient remains stable All the family members were updated about her condition and possible placement down the line 07/05/2023 The patient was seen and examined in medical telemetry unit entrance of the son She has been stable and awaiting placement She will need to go to SNF/personal residential for continued care 07/06/2023 The patient was seen and examined in medical telemetry unit She has been stable and waiting to be placed Denies any significant symptoms Review of Systems Review of Systems: All systems reviewed and are unremarkable except as noted below Physical Exam Physical Exam: Sitting on a chair without any acute distress Constitutional: + ill appearing and + thin Eyes: PERRL, conjunctivae normal, anicteric sclerae ENMT: external ear and nose normal, oropharynx normal Neck: trachea midline, no thyromegaly Respiratory: no respiratory distress Auscultation: + diminished lung sounds and + crackles (Minimal bibasilar crackles) Cardiovascular: Rate/Rhythm: regular rate and regular rhythm; not tachycardic Heart Sounds: normal S1, normal S2 and + murmur Extremities: no edema Gastrointestinal (Abdomen): Inspection/Auscultation: normal bowel sounds; abdomen not distended Percussion/Palpation: abdomen soft; abdomen nontender Musculoskeletal: No acute arthritis involving any of the joint Neurologic: normal touch/pain/proprioception and moves all extremities; no focal motor deficits and not confused Psychiatric: A+Ox3, euthymic affect Results & Data Results & Data Vital Signs (Past 12 Hours) Vital Signs Temp Pulse Pulse Resp BP Pulse Ox O2 Del Method 07/06/23 11:39 36.8 C 75 16 106/46 L 97 Room Air 07/06/23 07:46 37.3 C 75 16 135/65 94 Room Air 07/06/23 07:31 67 07/06/23 03:24 37.7 C H 81 16 120/63 94 Room Air Medications Administered Current Inpatient Medications Acetaminophen (Acetaminophen 325 Mg Tab) 650 mg PO Q4H PRN PRN Reason: pain/fever Stop: 07/31/23 17:29 Last Admin: 07/02/23 04:11 Dose: 650 mg Al Hydrox/Mg Hydrox/Simethicone (Aluminum/Magnesium Susp 30 Ml Udc) 30 ml PO Q6H PRN PRN Reason: Dyspepsia Stop: 07/31/23 17:29 Artificial Tears (Artificial Tears) 1 drops OP HS MALU Stop: 07/31/23 20:59 Last Admin: 07/05/23 21:48 Dose: 1 drops Aspirin (Aspirin 81 Mg Ectab) 81 mg PO DAILY MALU Stop: 08/01/23 08:59 Last Admin: 07/06/23 10:27 Dose: 81 mg Calcium/Vitamin D (Calcium 600mg + Vit D 400 Iu Tab) 1 tab PO DAILY MALU Stop: 08/01/23 08:59 Last Admin: 07/06/23 10:27 Dose: 1 tab Docusate Sodium (Docusate Sodium 100 Mg Cap) 100 mg PO BID [facility] Stop: 07/31/23 20:59 Last Admin: 07/06/23 10:31 Dose: 100 mg Heparin Sodium (Porcine) (Heparin Sod 5,000 Unit/0.5 Ml Vial) 5,000 units SQ Q12 MALU Stop: 07/31/23 20:59 Last Admin: 07/06/23 10:27 Dose: 5,000 units Losartan Potassium (Losartan Potassium 50 Mg Tab) 50 mg PO DAILY MALU Stop: 08/01/23 08:59 Last Admin: 07/06/23 10:28 Dose: 50 mg Magnesium Hydroxide (Magnesium Hydroxide Susp 30 Ml Udc) 30 ml PO Q6H PRN PRN Reason: Constipation Stop: 07/31/23 17:29 Meclizine HCl (Meclizine Hcl 25 Mg Tab) 25 mg PO TID PRN PRN Reason: Dizziness or Vertigo Stop: 07/31/23 17:29 Multivitamins (Multivitamin Tab) 1 tab PO QAM [facility] Stop: 08/01/23 08:59 Last Admin: 07/06/23 10:28 Dose: 1 tab Ondansetron HCl (Ondansetron Inj 2 Mg/Ml 2 Ml Vial) 4 mg IV Q6H PRN PRN Reason: Nausea Stop: 07/31/23 17:29 Polyethylene Glycol (Polyethylene (Miralax) 17 Gm Pack) 17 gm PO DAILY PRN PRN Reason: Constipation Stop: 07/31/23 17:29
[2023-07-06] MEDS: ARTIFICIAL TEARS OP SCH (19:49)
[2023-07-07 02:10] LABS: Appearance Urine Cloudy (Clear); Bacteria Urine Automated 1+ (Negative); Bilirubin Urine Negative (Negative); Blood Urine Trace (Negative); Color Urine Yellow; Epithelial Cell Urine Auto 20-30 /lpf (0-5); Glucose Urine UA Negative (Negative); Ketones Urine Negative (Negative); Leukocyte Esterase Urine 2+ (Negative); Nitrite Urine Positive (Negative); Protein Urine Negative (Negative); RBC Urine Automated 0-4 /hpf (0-4); Urobilinogen Urine Negative (Negative); WBC Urine Automated >30 /hpf (0-5)
[2023-07-07] MEDS: HEPARIN SOD 5,000 UNIT/0.5 ML VIAL SQ SCH ×2 (09:00→20:25)
[2023-07-07] MEDS: LOSARTAN POTASSIUM 50 MG TAB PO SCH (09:01)
[2023-07-07] MEDS: DOCUSATE SODIUM 100 MG CAP PO SCH ×2 (09:01→20:25)
[2023-07-07] MEDS: MULTIVITAMIN TAB PO SCH (09:01)
[2023-07-07] MEDS: ASPIRIN 81 MG ECTAB PO SCH (09:02)
[2023-07-07] MEDS: CALCIUM 600MG + VIT D 400 IU TAB PO SCH (09:02)
--- NOTE | 2023-07-07 17:41 | Hospitalist Progress Note ---
Date of Service July 07, 2023 Assessment & Plan (1) Generalized weakness: Plan: per Dr. Troncoso's notes with addendum: She was admitted on 07/01/2023 with weakness and confusion with history of dementia No apparent infection was found to complicate general weakness Noted to be mildly dehydrated with BUN of 26 Received adequate amount of IV fluid and the weakness improved Also received potassium supplement to improve her general condition She has had physical therapy and has been doing much better Has had occupational therapy-recommended if required ADL's can be met then she can be discharged Family members are worried that she might not do good alone at home and wanted to have placement The patient also feels that she may be better off going to rehab for short-term We will try for placement Weakness may or may not improve down the line even with physical therapy She is not safe to discharge home-Will need placement She has been doing better with physical therapy He needs more help with occupational therapy-activities of daily living He definitely carries a risk of fall if left alone Awaiting placement 07/07 stable overall awaiting acceptance to SNF (2) Weight loss: Plan: Weight loss has been going on for some time Her appetite is reasonable but she does not finish the meal No evidence of any intraluminal cancer with history of possible pancreatic mass which has been ruled out She was advised to eat and drink more She has been eating and drinking reasonably 07/07 appetite is ok as per patient (3) Confusion: Plan: Has vascular dementia Presented with confusion that seems to be cleared up subsequently She has history of dementia as per family members-further documentation of that he is as below from my colleague earlier MRI brain negative for acute process on this admission CT AP without abdominal mass on this admission CT chest with small RLL (4mm) nodule and bronchiectasis TSH remains normal Resp panel negative, UA negative, blood cultures NGTD-no signs and or symptoms of infection Order B12, folate-have been canceled and will reorder for tomorrow morning that is 07/04/2023, Iron levels have been minimally low at 34 Her confusion seems to be cleared She remains mentally clear during examination Gets occasionally forgetful otherwise no acute delirium 07/07 oriented x 3 today (4) HTN (hypertension): Plan: Remains controlled We will continue current medications Blood pressure remains stable 07/07 BP stable #Complex psychosocial situation Years of documentation of son and daughter in law seeking placement, expressing concern over "safety" Neuropsych testing in 2020 negative for cognitive impairment to any degree (see below) Neurology followed for vertigo, transient in nature, but no imaging findings since 2017 for acute stroke or other acute abnormalities MRI brain negative for acute process on this admission CT AP without abdominal mass on this admission CT chest with small RLL (4mm) nodule and bronchiectasis TSH WNL Resp panel negative, UA negative, blood cultures NGTD PT/OT without signs of weakness appreciated #Bronchiectasis #Lung Nodule -4mm lung nodule RLL -Outpatient follow up for routine imaging -Patient on Room air without resp concerns, CT -No antibiotics needed #Chronic dizziness/vertigo No history of vertebral insufficiency, concerns ruled out; 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 [facility] and been encouraged to follow up OP with [facility] for concerns. Not on statin 2/2 intolerance Continue ASA Trial of meclizine Strongly advised to take precaution to avoid fall and take time to initiate any movement-discussed with the patient and the family members 07/07 denies dizziness #Osteoporosis -Continue alendronate q wednesday DVT ppx: SQ Heparin DNR/DNI We will discuss with the family members when available Detailed discussion is done with the family members Awaiting placement-discussed with the son again Discussed with the son again on 07/05/2023-she will be going to skilled care/personal care (5) Other specified problems related to primary support group: Plan: As documented below Plan Ms. Peguero is an 87-year-old female who has a significant past medical history of HTN, age-related osteoporosis, BPPV, statin intolerance who presents to ED secondary to generalized weakness and lack of appetite x2 weeks. Patient [place] [facility] [place] [facility] [place] 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 At that time she also had significantly elevated LFTs. Family states unhappy with care and wish to pursue further imaging regarding this, but nobody would. Patient also recently seen at [facility] 5 days ago, twice in 1 day, due to worsened progressive weakness, increased confusion and inability to care for self at home. Due to no significant abnormality found she was discharged home and told maybe she had a, "TIA." Currently patient lives alone with her cat, ambulates with a walker occasionally and has family close by. Zfoufsfk-bb-aok and granddaughter at bedside elicit patient does have underlying dementia which is worsening and she is unable to care for self at home. Family is interested in placement.They further report approximately 20 pound weight loss in the last 1 month. They are also interested in pursuing further work-up regarding this, "pancreatic mass as well as requesting an MRI of brain to rule out possible stroke." " Patient appears cognitively intact. She is AOx4. She denies any acute issues. She wishes to return home and does not desire nan cement at this time. Son and ochhwcyh-vc-lbb actively engaged in care, with multiple notes documenting frequent concerns of "safety." They state that they are "getting different reports" and "other doctors say [the patient] needs 24/7 support" and the patient "cannot live with them." It was expressed to son and pxubdlxl-ig-rbh that review of records available as well as current evaluation as not revealed any chronic cognitive illnesses that would require medical justification for placement. It was expressed that acute illness, like common cold/flu like symptoms, can cause acute decline in elderly with prompt recovery of symptoms when treated (example, IVF). Son and jnfcaxpz-iv-dyi expressed extreme, apparent dissatisfaction with report of normal imaging, including unremarkable MRI and unremarkable CT scan. Informed every one in the room (including nurse, case operator, son, and daughter in law) that the plan going forward would include formal psych eval for cognitive impairment; monitoring for behavioral disturbances, to include confusion; as well as daily assessment of understanding. If the aforementioned does not yield any signs of impairment that warrant 24/7 support, then will discharged home with home services--as well as a request from [facility] A[facility] for courtesy visit to assess state of home, patient's wellbeing outside of hospitalization. Ibywjtrp-wl-ubs abruptly left conversation. Son agreed to aforementioned plan. #Complex psychosocial situation Years of documentation of son and daughter in law seeking placement, expressing concern over "safety" Neuropsych testing in 2020 negative for cognitive impairment to any degree (see below) Neurology followed for vertigo, transient in nature, but no imaging findings since 2017 for acute stroke or other acute abnormalities MRI brain negative for acute process on this admission CT AP without abdominal mass on this admission CT chest with small RLL (4mm) nodule and bronchiectasis TSH WNL Resp panel negative, UA negative, blood cultures NGTD PT/OT without signs of weakness appreciated Order B12, folate, iron to am labs #Bronchiectasis #Lung Nodule -4mm lung nodule RLL -Outpatient follow up for routine imaging -Patient on Room air without resp concerns, CTM #Hypokalemia *resolved replete, follow in am. 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 Has [facility] and been encouraged to follow up OP with [facility] for concerns. Not on statin 2/2 intolerance Continue ASA Trial of meclizine #Osteoporosis -Continue alendronate q wednesday DVT ppx: SQ Heparin DNR/DNI The following paragraphs have been copied over from outside [facility] EMR from visits: Neuropsychological from 10/04/2019 OZZIE BEARD PHD [place]: "The results of both tests that her memory ability falls in the average range. She had minor difficulty with several problems but she was able to self correct. There were no indications of memory impairment on these tests." Telephone encounter from 10/20/2019: " I called and spoke to her daugher in law. I did let her know that we never received the paperwork from the Dr. Beard. Daughter in law is very frustrated with Karly, she is not very honest with them. She does not tell them when she is dizzy. Family feels very strongly that she should not be driving. She states that Karly has fooled the home nurses/home PT into believing she has no issues, however, she has used the entire script of Antivert that was given on 09/21/2019. She is calling Dr. Beard and asking them to resend the office note. [id number]" Telephone encounter from 10/20/2019: Pt's etfapifh-se-xxp calling in with the following concerns. Pt was seen last month with Dr. Ozzie Beard in [place] for neuropsych testing. The office sent the information to [facility] immediately following the exam. Pt's daughter in law is wondering why she has not received a call back in regards to this (regardless of whether or not the testing has been received)Pt's family is frustrated that they have not been contacted with any updates to the pt's care. They would like to know what the next step should be as far as the pt's ability to drive. Pt is still dizzy throughout the day and the family does not feel it is safe for her to drive. They do not understand why home health discharged the pt from their services when the pt is still having symptoms. Znfcnkml-jo-dcb is disappointed with the services they have received and feels that she may transfer the pt outside of [facility]. She declined offer to transfer to complaint line. Please advise. 1421 Telephone encounter from 10/04/2019 (NEUROLOGY): I evaluated the patient in the context of an acute vestibular syndrome follow up. Patient had vertigo in the hospital. Had resolved when I saw her. I therefore did not perform any additional testing. We did not discuss this topic and family did not voice concern for driving. I Would defer to family. If family has concerns would recommend formal driving assessment. 1433 Telephone encounter from 10/04/2019 (FAMILY PRACTICE): If driving is okay with Neurology it is okay with me. 1423 Progress Note encounter from 09/22/2019 (NEUROLOGY): "Acute vestibular syndrome Vertigo MS. Peguero is a very pleasant 84-year-old woman presenting to clinic for hospital follow-up. Patient was recently admitted [facility] for an episode of acute vertigo. Symptoms have since resolved. On examination she has no evidence of nystagmus or ataxia with eeqpos-co-ykbu testing. There is no tremor. She is able to stand from seated position with arms crossed. She is also able to perform tandem gait. She denies headache. I did discuss the possibility of a mild TBI or concussion status post her fall which may be cont ributing to her feeling a little groggy for the last few days. Hospital workup was reassuring and discussed and reviewed with patient. No she can certainly use meclizine as needed. I did discuss the possibility of a scopolamine patch if needed also. If vertigo does return she would benefit from the vestibular rehab or [facility]. Otherwise she can follow up with me as needed for right now. Patient and family agreed plan of care had no further questions time. I did provide the family with my contact card should they have any further questions. Mike Cifuentes, " Progress Note encounter from 05/25/2017 ([facility]): "Assessment / Plan: Patient is a 81 year old female with a 4 month history of positional type vertigo. I think her history is classic for BPPV, however head positioning tests were negative today and symptoms have been inactive over the last week. I suspect the condition may have resolved (debris degradation in endolymph) or could be waxing and waning. Remainder of the office-based vestibular examination appeared normal, no evidence of acute vestibular loss. Highly appropriate to see for return visit if positional type symptoms recur. I extensively discussed BPPV with the patient and stressed the importance of pursuing canalith repositioning maneuvers to address BPPV recurrences, maneuvers are typically effective (~95% in 1-2 sessions) and not costly. Rehabilitation potential: To be determined Goals: To be determined Approximately 1 visit/week for 12 weeks, only as needed. Plan will include reassessment including repeated positioning tests, canalith repositioning maneuvers (if needed) and patient education on self management to address potential recurrences. Patient will call clinic to schedule return visit if needed Treatment plan was reviewed with the patient who agreed with the plan of care Alexys Coleman PT, DPT, NCS Director, Otolaryngology [facility] Page #[phone]" Admission and Anticipated Discharge Date Admission Date: July 01, 2023 Subjective ff up for weakness, etc seen resting in bed, comfortable oriented x 3, in good spirits states she feels fine overall no chest pain, dyspnea, palpitations, dizziness appetite is ok no new symptoms Review of Systems Review of Systems: all noted and negative except for above Physical Exam Physical Exam: General- oriented x 3, not in distress, speaks in sentences with no effort or accessory muscle use Eyes- anicteric Neck- no JVD Lungs- clear breath sounds bilaterally, no rales/wheezes Heart- normal rate, regular rhythm; no murmurs Abdomen- normal bowel sounds, nondistended, soft, nontender Extremities- no pretibial edema, no calf tenderness Neuro- alert, oriented x 3; no gross focal neurologic deficits Skin- warm & dry Results & Data Results & Data Vital Signs (Past 12 Hours) Vital Signs Temp Pulse Pulse Resp BP Pulse Ox O2 Del Method 07/07/23 15:09 37.0 C 69 18 122/66 95 Room Air 07/07/23 14:07 76 07/07/23 12:26 36.4 C L 70 18 130/81 95 Room Air 07/07/23 08:17 36.7 C 67 18 117/76 117 H Room Air 07/07/23 05:59 76 all noted and reviewed including below
[2023-07-07] MEDS: ARTIFICIAL TEARS OP SCH (20:25)
[2023-07-08] MEDS: ASPIRIN 81 MG ECTAB PO SCH (08:05)
[2023-07-08] MEDS: CALCIUM 600MG + VIT D 400 IU TAB PO SCH (08:06)
[2023-07-08] MEDS: LOSARTAN POTASSIUM 50 MG TAB PO SCH (08:06)
[2023-07-08] MEDS: HEPARIN SOD 5,000 UNIT/0.5 ML VIAL SQ SCH ×2 (08:06→20:37)
[2023-07-08] MEDS: DOCUSATE SODIUM 100 MG CAP PO SCH ×2 (08:06→20:37)
[2023-07-08] MEDS: MULTIVITAMIN TAB PO SCH (08:07)
[2023-07-08] MEDS: ARTIFICIAL TEARS OP SCH (20:37)
[2023-07-09] MEDS: DOCUSATE SODIUM 100 MG CAP PO SCH (08:53)
[2023-07-09] MEDS: MULTIVITAMIN TAB PO SCH (08:53)
[2023-07-09] MEDS: LOSARTAN POTASSIUM 50 MG TAB PO SCH (08:53)
[2023-07-09] MEDS: CALCIUM 600MG + VIT D 400 IU TAB PO SCH (08:53)
[2023-07-09] MEDS: ASPIRIN 81 MG ECTAB PO SCH (08:54)
[2023-07-09] MEDS: HEPARIN SOD 5,000 UNIT/0.5 ML VIAL SQ SCH (08:54)
[2023-07-09] MEDS ORDERED: cefUROXime axetil 250 MG TABLET PO SCH (11:30)
--- NOTE | 2023-07-09 11:32 | Hospitalist Progress Note ---
Date of Service July 09, 2023 delayed entry date of service 07/08/23 Assessment & Plan (1) Generalized weakness: Plan: per Dr. Troncoso's notes with addendum: She was admitted on 07/01/2023 with weakness and confusion with history of dementia No apparent infection was found to complicate general weakness Noted to be mildly dehydrated with BUN of 26 Received adequate amount of IV fluid and the weakness improved Also received potassium supplement to improve her general condition She has had physical therapy and has been doing much better Has had occupational therapy-recommended if required ADL's can be met then she can be discharged Family members are worried that she might not do good alone at home and wanted to have placement The patient also feels that she may be better off going to rehab for short-term We will try for placement Weakness may or may not improve down the line even with physical therapy She is not safe to discharge home-Will need placement She has been doing better with physical therapy He needs more help with occupational therapy-activities of daily living He definitely carries a risk of fall if left alone Awaiting placement 07/08 stable overall awaiting acceptance to SNF (2) Weight loss: Plan: Weight loss has been going on for some time Her appetite is reasonable but she does not finish the meal No evidence of any intraluminal cancer with history of possible pancreatic mass which has been ruled out She was advised to eat and drink more She has been eating and drinking reasonably 07/08 appetite is ok as per patient (3) Confusion: Plan: Has vascular dementia Presented with confusion that seems to be cleared up subsequently She has history of dementia as per family members-further documentation of that he is as below from my colleague earlier MRI brain negative for acute process on this admission CT AP without abdominal mass on this admission CT chest with small RLL (4mm) nodule and bronchiectasis TSH remains normal Resp panel negative, UA negative, blood cultures NGTD-no signs and or symptoms of infection Order B12, folate-have been canceled and will reorder for tomorrow morning that is 07/04/2023, Iron levels have been minimally low at 34 Her confusion seems to be cleared She remains mentally clear during examination Gets occasionally forgetful otherwise no acute delirium 07/08 oriented at this time can be forgetful intermittently Possible UTI Urine culture pending (4) HTN (hypertension): Plan: Remains controlled We will continue current medications Blood pressure remains stable 07/07 BP stable #Complex psychosocial situation Years of documentation of son and daughter in law seeking placement, expressing concern over "safety" Neuropsych testing in 2019 negative for cognitive impairment to any degree (see below) Neurology followed for vertigo, transient in nature, but no imaging findings since 2017 for acute stroke or other acute abnormalities MRI brain negative for acute process on this admission CT AP without abdominal mass on this admission CT chest with small RLL (4mm) nodule and bronchiectasis TSH WNL Resp panel negative, UA negative, blood cultures NGTD PT/OT without signs of weakness appreciated #Bronchiectasis #Lung Nodule -4mm lung nodule RLL -Outpatient follow up for routine imaging -Patient on Room air without resp concerns, CT -No antibiotics needed #Chronic dizziness/vertigo No history of vertebral insufficiency, concerns ruled out; 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 [facility] and been encouraged to follow up OP with [facility] for concerns. Not on statin 2/2 intolerance Continue ASA Trial of meclizine Strongly advised to take precaution to avoid fall and take time to initiate any movement-discussed with the patient and the family members 07/08 denies dizziness #Osteoporosis -Continue alendronate q wednesday DVT ppx: SQ Heparin DNR/DNI (5) Other specified problems related to primary support group: Plan: As documented below Plan Ms. Peguero is an 87-year-old female who has a significant past medical history of HTN, age-related osteoporosis, BPPV, statin intolerance who presents to ED secondary to generalized weakness and lack of appetite x2 weeks. Patient follows with PCP at [facility], [place], [place]. 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 At that time she also had significantly elevated LFTs. Family states unhappy with care and wish to pursue further imaging regarding this, but nobody would. Patient also recently seen at [facility] 5 days ago, twice in 1 day, due to worsened progressive weakness, increased confusion and inability to care for self at home. Due to no significant abnormality found she was discharged home and told maybe she had a, "TIA." Currently patient lives alone with her cat, ambulates with a walker occasionally and has family close by. Hxsvjvgn-yo-rgv and granddaughter at bedside elicit patient does have underlying dementia which is worsening and she is unable to care for self at home. Family is interested in placement.They further report approximately 20 pound weight loss in the last 1 month. They are also interested in pursuing further work-up regarding this, "pancreatic mass as well as requesting an MRI of brain to rule out possible stroke." " Patient appears cognitively intact. She is AOx4. She denies any acute issues. She wishes to return home and does not desire placement at this time. Son and dikokxfc-yq-cta actively engaged in care, with multiple notes documenting frequent concerns of "safety." They state that they are "getting different reports" and "other doctors say [the patient] needs 24/7 support" and the patient "cannot live with them." It was expressed to son and cyvguqib-ym-mtr that review of records available as well as current evaluation as not revealed any chronic cognitive illnesses that would require medical justification for placement. It was expressed that acute illness, like common cold/flu like symptoms, can cause acute decline in elderly with prompt recovery of symptoms when treated (example, IVF). Son and pdxauidg-pp-smj expressed extreme, apparent dissatisfaction with report of normal imaging, including unremarkable MRI and unremarkable CT scan. Informed every one in the room (including nurse, case consultant, son, and daughter in law) that the plan going forward would include formal psych eval for cognitive impairment; monitoring for behavioral disturbances, to include confusion; as well as daily assessment of understanding. If the aforementioned does not yield any signs of impairment that warrant 24/7 support, then will discharged home with home services--as well as a request from [facility] for courtesy visit to assess state of home, patient's wellbeing outside of hospitalization. Wxjhlzjm-ho-mee abruptly left conversation. Son agreed to aforementioned plan. #Complex psychosocial situation Years of documentation of son and daughter in law seeking placement, expressing concern over "safety" Neuropsych testing in 2020 negative for cognitive impairment to any degree (see below) Neurology followed for vertigo, transient in nature, but no imaging findings since 2017 for acute stroke or other acute abnormalities MRI brain negative for acute process on this admission CT AP without abdominal mass on this admission CT chest with small RLL (4mm) nodule and bronchiectasis TSH WNL Resp panel negative, UA negative, blood cultures NGTD PT/OT without signs of weakness appreciated Order B12, folate, iron to am labs #Bronchiectasis #Lung Nodule -4mm lung nodule RLL -Outpatient follow up for routine imaging -Patient on Room air without resp concerns, CTM #Hypokalemia *resolved replete, follow in am. 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 Has participated in [facility] and been encouraged to follow up OP with [facility] for concerns. Not on statin 2/2 intolerance Continue ASA Trial of meclizine #Osteoporosis -Continue alendronate q wednesday DVT ppx: SQ Heparin DNR/DNI The following paragraphs have been copied over from outside [facility] EMR from visits: Neuropsychological from 10/04/2019 OZZIE BEARD PHD JAY VALLECILLO: "The results of both tests that her memory ability falls in the average range. She had minor difficulty with several problems but she was able to self correct. There were no indications of memory impairment on these tests." Telephone encounter from 10/20/2019: " I called and spoke to her daugher in law. I did let her know that we never received the paperwork from the Dr. Beard. Daughter in law is very frustrated with Karly, she is not very honest with them. She does not tell them when she is dizzy. Family feels very strongly that she should not be driving. She states that Karly has fooled the home nurses/home PT into believing she has no issues, however, she has used the entire script of Antivert that was given on 09/21/2019. She is calling Dr. Beard and asking them to resend the office note. [id number]" Telephone encounter from 10/20/2019: Pt's xdiwozat-mz-eeh calling in with the following concerns. Pt was seen last month with Dr. Ozzie Beard in [place] for neuropsych testing. The [facility] the exam. Pt's daughter in law is wondering why she has not received a call back in regards to this (regardless of whether or not the testing has been received)Pt's family is frustrated that they have not been contacted with any updates to the pt's care. They would like to know what the next step should be as far as the pt's ability to drive. Pt is still dizzy throughout the day and the family does not feel it is safe for her to drive. They do not understand why home health discharged the pt from their services when the pt is still having symptoms. Rshsgobq-zv-zzj is disappointed with the services they have received and feels that she may transfer the pt outside of [facility]. She declined offer to transfer to complaint line. Please advise. 1421 Telephone encounter from 10/04/2019 (NEUROLOGY): I evaluated the patient in the context of an acute vestibular syndrome follow up. Patient had vertigo in the hospital. Had resolved when I saw her. I theref ore did not perform any additional testing. We did not discuss this topic and family did not voice concern for driving. I Would defer to family. If family has concerns would recommend formal driving assessment. 1433 Telephone encounter from 10/04/2019 (FAMILY PRACTICE): If driving is okay with Neurology it is okay with me. 1423 Progress Note encounter from 09/22/2019 (NEUROLOGY): "Acute vestibular syndrome Vertigo MS. Peguero is a very pleasant 84-year-old woman presenting to clinic for hospital follow-up. Patient was recently admitted [facility] for an episode of acute vertigo. Symptoms have since resolved. On examination she has no evidence of nystagmus or ataxia with gpxrfd-uu-mgcy testing. There is no tremor. She is able to stand from seated position with arms crossed. She is also able to perform tandem gait. She denies headache. I did discuss the possibility of a mild TBI or concussion status post her fall which may be contributing to her feeling a little groggy for the last few days. Hospital workup was reassuring and discussed and reviewed with patient. No she can certainly use meclizine as needed. I did discuss the possibility of a scopolamine patch if needed also. If vertigo does return she would benefit from the vestibular rehab or [facility]. Otherwise she can follow up with me as needed for right now. Patient and family agreed plan of care had no further questions time. I did provide the family with my contact card should they have any further questions. Mike Cifuentes, " Progress Note encounter from 05/25/2017 ([facility]): "Assessment / Plan: Patient is a 81 year old female with a 4 month history of positional type vertigo. I think her history is classic for BPPV, however head positioning tests were negative today and symptoms have been inactive over the last week. I suspect the condition may have resolved (debris degradation in endolymph) or could be waxing and waning. Remainder of the office-based vestibular examination appeared normal, no evidence of acute vestibular loss. Highly appropriate to see for return visit if positional type symptoms recur. I extensively discussed BPPV with the patient and stressed the importance of pursuing canalith repositioning maneuvers to address BPPV recurrences, maneuvers are typically effective (~95% in 1-2 sessions) and not costly. Rehabilitation potential: To be determined Goals: To be determined Approximately 1 visit/week for 12 weeks, only as needed. Plan will include reassessment including repeated positioning tests, canalith repositioning maneuvers (if needed) and patient education on self management to address potential recurrences. Patient will call clinic to schedule return visit if needed Treatment plan was reviewed with the patient who agreed with the plan of care Alexys Coleman PT, DPT, NCS Director, Otol[facility]ology [facility] Page #[phone]" Admission and Anticipated Discharge Date Admission Date: July 01, 2023 Subjective ff up for weakness, etc seen resting in bed, comfortable no chest pain, dyspnea, palpitations, dizziness states she feels fine overall denies abdominal pain, nausea, dysuria, etc no other symptoms Review of Systems Review of Systems: all noted and negative except for above Physical Exam Physical Exam: General- oriented x 3, not in distress, speaks in sentences with no effort or accessory muscle use Eyes- anicteric Neck- no JVD Lungs- clear breath sounds bilaterally, no rales/wheezes Heart- normal rate, regular rhythm; no murmurs Abdomen- normal bowel sounds, nondistended, soft, nontender Extremities- no pretibial edema, no calf tenderness Neuro- alert, oriented x 3; no gross focal neurologic deficits Skin- warm & dry Results & Data Results & Data Vital Signs (Past 12 Hours) Vital Signs Temp Pulse Pulse Resp BP Pulse Ox O2 Del Method 07/09/23 07:48 36.6 C 79 18 128/71 95 Room Air 07/09/23 07:34 57 L 07/09/23 02:50 36.8 C 73 16 133/70 96 Room Air all noted and reviewed including below
--- NOTE | 2023-07-09 11:36 | Hospitalist Progress Note ---
Date of Service July 09, 2023 Assessment & Plan Admission and Anticipated Discharge Date Admission Date: July 01, 2023 Subjective ff up for Results & Data Results & Data Vital Signs (Past 12 Hours) Vital Signs Temp Pulse Pulse Resp BP Pulse Ox O2 Del Method 07/09/23 11:30 36.5 C 66 18 94/57 L 94 Room Air 07/09/23 07:48 36.6 C 79 18 128/71 95 Room Air 07/09/23 07:34 57 L 07/09/23 02:50 36.8 C 73 16 133/70 96 Room Air
--- NOTE | 2023-07-09 12:46 | Discharge Summary ---
Discharge Summary Date of Service July 09, 2023 Notes For Next Care Provider Medication Changes From Visit please refer to assessment and plan below. Admission HPI Per Admitting Provider This is an 87-year-old female who has a significant past medical history of HTN, age-related osteoporosis, cerebellar ataxia, vertebrobasilar insufficiency, statin intolerance who presents to ED secondary to generalized weakness and lack of appetite x2 weeks. [id number] and granddaughter are at bedside who help elicit history. They state that patient has underlying dementia. When asked orientation questions patient was alert and oriented x4. Family states that patient's PCP is an independent provider in [place]. Approximately 2 years ago she underwent a CAT scan of her abdomen pelvis which revealed a pancreatic mass. Family states they are unhappy with her care as have been trying to get an MRI and nobody will order. They also state over the last 2 to 3 weeks that she has had a significant decline in her mobility and when they found her this morning they were unable to get her out of bed. On Wednesday of this past week they took her to [facility] ER twice due to worsening weakness, mental status and overall lack of appetite. Per family members work-up reportedly unremarkable and despite hoping patient would be admitted to hospital she was discharged to home. Family is having difficult time caring for patient at home and they are interested in pursuing placement. They are also interested in pursuing further information regarding mass of pancreatic head as patient's mother is of pancreatic cancer in her 80s. They are also requesting MRI of brain to rule out that she has not had a stroke in the last several weeks due to the significant mental and physical decline. Patient states she is always chilled and occasionally feels sweaty, she has chronic dizziness in setting of vertigo, overall lack of appetite, 20 pound weight loss in the last 4 weeks, early satiety and generalized weakness, aches and pains. Approximately 1 week ago she did complete a course of oral cefdinir for a diagnosed UTI. She completed this in its entirety. She denies any documented fever, lightheadedness, syncope, chest pain, cough, nausea, vomiting, abdominal pain, dysuria, increased urgency or frequency with urination, melena or medic easier. She states her last bowel movement was approximately 1 week ago. At baseline patient lives alone and does ambulate with a walker occasionally. She does have family members close by who check on her regularly. In ED patient remained hemodynamically stable. Lab work notable for mild hypokalemia which has been repleted. She also appears to be dehydrated and was started on some IV fluid. Her BioFire panel was negative. Admission Exam Per Admitting Provider Constitutional: thin, petite, fraile, vitals as above, NAD, sitting up in bed, pleasant, keeps eyes closed and answers quest approp Head: Normocephalic, Atraumatic Eyes: PERRL, conjunctivae normal, anicteric sclerae ENMT: external ear and nose normal, oropharynx normal dry membranes Neck: trachea midline, no thyromegaly normal visual inspection Respiratory: normal respiratory effort, lungs clear to auscultation, no wheeze, rales, rhonchi. Normal insp/exp effort, no accessory muscle use Cardiovascular: RRR, no murmur, no edema, mild venous insuff changes Vessels: no JVD or carotid bruit Chest: normal inspection of chest Abdomen: normal bowel sounds, soft, nontender, no hepatosplenomegaly Musculoskeletal: no cyanosis or clubbing, extremities motor strength 4/5 Skin: no rashes, warm and dry normal turgor Neurologic: PERRL, EOMI, accommodation nl, no face palsy, no dysarthria CN's II-XI intact bilaterally and moves all extremities Psychiatric: A+Ox3, euthymic affect Lymphatic: no cervical or axillary lymphadenopathy : deferred Principal Dx & Hospital Course #1 = Principal Diagnosis (1) Generalized weakness: per Dr. Troncoso's notes with addendum: She was admitted on 07/01/2023 with weakness and confusion with history of dementia No apparent infection was found to complicate general weakness Noted to be mildly dehydrated with BUN of 26 Received adequate amount of IV fluid and the weakness improved Also received potassium supplement to improve her general condition She has had physical therapy and has been doing much better Has had occupational therapy-recommended if required ADL's can be met then she can be discharged Family members are worried that she might not do good alone at home and wanted to have placement The patient also feels that she may be better off going to rehab for short-term 07/08 stable overall awaiting acceptance to SNF (2) Weight loss: Weight loss has been going on for some time Her appetite is reasonable but she does not finish the meal No evidence of any intraluminal cancer with history of possible pancreatic mass which has been ruled out 07/08 appetite is ok as per patient (3) Confusion: Has vascular dementia Presented with confusion that seems to be cleared up subsequently She has history of dementia as per family members-further documentation of that he is as below from my colleague earlier MRI brain negative for acute process on this admission CT AP without abdominal mass on this admission CT chest with small RLL (4mm) nodule and bronchiectasis TSH remains normal Resp panel negative, UA negative, blood cultures NGTD-no signs and or symptoms of infection Order B12, folate-have been canceled and will reorder for tomorrow morning that is 07/04/2023, Iron levels have been minimally low at 34 Gets occasionally forgetful otherwise no acute delirium 07/08 oriented at this time can be forgetful intermittently UTI Urine culture E coli Cefuroxime BID x 5 days total (4) HTN (hypertension): Remains controlled We will continue current medications #Bronchiectasis #Lung Nodule -4mm lung nodule RLL -Outpatient follow up for routine imaging -Patient on Room air without resp concerns, CT -No antibiotics needed #Chronic dizziness/vertigo No history of vertebral insufficiency, concerns ruled out; 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 Has participated in [facility] and been encouraged to follow up OP with [facility] for concerns. Not on statin 2/2 intolerance Continue ASA Trial of meclizine Strongly advised to take precaution to avoid fall and take time to initiate any movement-discussed with the patient and the family members 07/08 denies dizziness #Osteoporosis -Continue alendronate q wednesday DVT ppx: SQ Heparin given DNR/DNI transition to SNF ff up with PCP in 1 week (5) Other specified problems related to primary support group: As documented below Discharge Exam General- oriented x 3, not in distress, speaks in sentences with no effort or accessory muscle use Eyes- anicteric Neck- no JVD Lungs- clear breath sounds bilaterally, no rales/wheezes Heart- normal rate, regular rhythm; no murmurs Abdomen- normal bowel sounds, nondistended, soft, nontender Extremities- no pretibial edema, no calf tenderness Neuro- alert, oriented x 3; no gross focal neurologic deficits Skin- warm & dry Updated Medication List Medication Instructions Recorded Confirmed Type alendronate 70 mg tablet 70 mg PO DILL 07/01/23 07/01/23 History aspirin 81 mg tablet,delayed 81 mg PO DAILY 07/01/23 07/01/23 History release calcium citrate 200 mg (950 mg) 200 mg PO DAILY 07/01/23 07/01/23 History tablet dextran 70-hypromellose (PF) 0.1 1 drp ophthalmic (eye) HS 07/01/23 07/01/23 History %-0.3 % eye drops in a dropperette (Artificial Tears (PF)) losartan 50 mg tablet 50 mg PO DAILY 07/01/23 07/01/23 History multivitamin 1 tab PO DAILY 07/01/23 07/01/23 History cefuroxime axetil 250 mg tablet 250 mg PO BID 5 days #10 tabs 07/09/23 Rx docusate sodium 100 mg capsule 100 mg PO BID 30 days #60 caps 07/09/23 Rx Hospital Stay Data Consultations 07/01/23 14:35 ED Decision to Admit Stat 07/01/23 15:43 HIM [Consult Health Information Management] Routine Diagnostic Imagining Performed Laboratory Results WBC 11.75 K/ul (4.8-10.8) H 07/04/23 05:44 RBC 4.11 M/uL (4.20-5.40) L 07/04/23 05:44 Hgb 11.4 g/dl (12.0-16.0) L 07/04/23 05:44 Hct 35.0 % (37.0-47.0) L 07/04/23 05:44 MCV 85.2 fL (80.0-100.0) 07/04/23 05:44 MCH 27.7 pg (25.0-34.0) 07/04/23 05:44 MCHC 32.6 g/dL (32.0-36.0) 07/04/23 05:44 RDW Std Deviation 47.5 fL (36.4-46.3) H 07/04/23 05:44 RDW Coeff of G[place]y 15.3 % (11.5-14.5) H 07/04/23 05:44 Plt Count 374 K/uL (130-400) 07/04/23 05:44 MPV 11.0 fL (9.4-12.4) 07/04/23 05:44 Immature Gran % (Auto) 0.7 % 07/04/23 05:44 Neut % (Auto) 58.0 % 07/04/23 05:44 Lymph % (Auto) 22.3 % 07/04/23 05:44 Ashley % (Auto) 5.3 % 07/04/23 05:44 Eos % (Auto) 13.0 % 07/04/23 05:44 Baso % (Auto) 0.7 % 07/04/23 05:44 Neut # (Auto) 6.82 K/uL (1.40-6.50) H 07/04/23 05:44 Lymph # (Auto) 2.62 K/uL (1.20-3.40) 07/04/23 05:44 Ashley # (Auto) 0.62 K/uL (0.11-0.59) H 07/04/23 05:44 Eos # (Auto) 1.53 K/uL (0.00-0.50) H 07/04/23 05:44 Baso # (Auto) 0.08 K/uL (0.00-0.20) 07/04/23 05:44 Immature Gran # (Auto) 0.08 K/uL (0.01-0.20) 07/04/23 05:44 Sodium 139 mmol/L (136-145) 07/04/23 05:44 Potassium 3.9 mmol/L (3.5-5.1) 07/04/23 05:44 Chloride 107 mmol/L (98-107) 07/04/23 05:44 Carbon Dioxide 25 mmol/L (21-32) 07/04/23 05:44 Anion Gap 7 (3-11) 07/04/23 05:44 BUN 13 mg/dl (6-23) 07/04/23 05:44 Creatinine 0.61 mg/dl (0.6-1.2) 07/04/23 05:44 Est Cr Clr Drug Dosing 48.1 ml/min 07/04/23 05:44 Est GFR ( Amer) 93.8 ml/min 07/04/23 05:44 Est GFR (Non-Af Amer) 80.9 ml/min 07/04/23 05:44 BUN/Creatinine Ratio 21.3 (10-20) H 07/04/23 05:44 Glucose 102 mg/dl (70-99(Fasting)) H 07/04/23 05:44 Calcium 8.8 mg/dl (8.6-10.3) 07/04/23 05:44 Phosphorus 3.4 mg/dl (2.5-4.9) 07/04/23 05:44 Magnesium 1.9 mg/dl (1.7-2.4) 07/04/23 05:44 Iron 34 mcg/dl (35-150) L 07/03/23 06:22 TIBC 181 mcg/dl (250-450) L 07/03/23 06:22 Unsaturated IBC 147 mcg/dl (155-355) L 07/03/23 06:22 Transferrin % Sat 19 % (15-50) 07/03/23 06:22 Ferritin 275.5 ng/ml (8-388) 07/03/23 06:22 Total Bilirubin 0.5 mg/dl (0.2-1.0) 07/01/23 11:52 AST 22 U/L (13-39) 07/01/23 11:52 ALT 29 U/L (7-52) 07/01/23 11:52 Alkaline Phosphatase 172 U/L (34-104) H 07/01/23 11:52 Total Protein 7.5 gm/dl (6.0-8.3) 07/01/23 11:52 Albumin 3.5 gm/dl (3.4-5.0) 07/01/23 11:52 Globulin 4.0 gm/dl (2.5-4.0) 07/01/23 11:52 Albumin/Globulin Ratio 0.9 (0.9-2) 07/01/23 11:52 Vitamin B12 Cancelled 07/01/23 11:52 Folate Cancelled 07/01/23 11:52 TSH 1.143 uIu/ml (0.300-4.500) 07/01/23 11:52 Urine Color Yellow 07/07/23 01:50 Urine Appearance Cloudy (Clear) A 07/07/23 01:50 Urine pH 7.0 (4.5-7.5) 07/07/23 01:50 Ur Specific [place] 1.010 (1.000-1.030) 07/07/23 01:50 Urine Protein Negative (Negative) 07/07/23 01:50 Urine Glucose (UA) Negative (Negative) 07/07/23 01:50 Urine Ketones Negative (Negative) 07/07/23 01:50 Urine Blood Trace (Negative) H 07/07/23 01:50 Urine Nitrite Positive (Negative) A 07/07/23 01:50 Urine Bilirubin Negative (Negative) 07/07/23 01:50 Urine Urobilinogen Negative (Negative) 07/07/23 01:50 Ur Leukocyte Esterase 2+ (Negative) H 07/07/23 01:50 Urine WBC (Auto) >30 /hpf (0-5) H 07/07/23 01:50 Urine RBC (Auto) 0-4 /hpf (0-4) 07/07/23 01:50 U Hyaline Cast (Auto) 1-5 /lpf (0-5) 07/07/23 01:50 U Epithel Cells (Auto) 20-30 /lpf (0-5) H 07/07/23 01:50 Urine Bacteria (Auto) 1+ (Negative) H 07/07/23 01:50 Amorphous Sediment Present (None Prsent) A 07/01/23 14:10 Urine Yeast Not Reportable 07/01/23 14:10 Adenovirus (PCR) Not Detected (NotDetected) 07/01/23 12:33 B. pertussis DNA (PCR) Not Detected (NotDetected) 07/01/23 12:33 B.parapertussis DNA PCR Not Detected (NotDetected) 07/01/23 12:33 C. pneumoniae DNA (PCR) Not Detected (NotDetected) 07/01/23 12:33 Coronavirus OC43 (PCR) Not Detected (NotDetected) 07/01/23 12:33 Coronavirus HKU1 (PCR) Not Detected (NotDetected) 07/01/23 12:33 Coronavirus 229E (PCR) Not Detected (NotDetected) 07/01/23 12:33 SARS-CoV-2 (PCR) Not Detected (NotDetected) 07/01/23 12:33 Coronavirus NL63 (PCR) Not Detected (NotDetected) 07/01/23 12:33 Human Metapneumovir PCR Not Detected (NotDetected) 07/01/23 12:33 Influenza Type A (PCR) Not Detected (NotDetected) 07/01/23 12:33 Influenza Type B (PCR) Not Detected (NotDetected) 07/01/23 12:33 M. pneumoniae (PCR) Not Detected (NotDetected) 07/01/23 12:33 Parainfluenza 1 (PCR) Not Detected (NotDetected) 07/01/23 12:33 Parainfluenza 2 (PCR) Not Detected (NotDetected) 07/01/23 12:33 Parainfluenza 3 (PCR) Not Detected (NotDetected) 07/01/23 12:33 Parainfluenza 4 (PCR) Not Detected (NotDetected) 07/01/23 12:33 RSV (PCR) Not Detected (NotDetected) 07/01/23 12:33 Entero/Rhino (PCR) Not Detected (NotDetected) 07/01/23 12:33 Miscellaneous Test REPORT 07/04/23 05:44 Impressions Chest X-Ray 07/01/23 12:25 XR chest 1V portable CLINICAL HISTORY: weakness TECHNIQUE: Single frontal radiograph of the chest was obtained. Comparison: None available at the time of this dictation. FINDINGS: No lines and tubes are seen. Calcified aortic knob is seen. Reticular interstitial opacities are seen. Radiodensities are seen in the bilateral lung bases. No evidence of pleural effusion or pneumothorax. IMPRESSION: Interstitial opacities are seen. Atelectasis without evidence of aspiration/pneumonia. ACT 112: Negative or not required by law. Electronically signed by: Osvaldo Romo M.D. 07/01/2023 1:15 PM Abdomen/Pelvis CT 07/01/23 15:21 CT abd pelvis IV con only CLINICAL HISTORY: eval for pancreatic mass TECHNIQUE: Helical axial images of the abdomen and pelvis were obtained and displayed. Automated dose lowering techniques and/or adjustment according to patient size were utilized for this exam. This exam was performed with intravenous contrast. CT DOSE: 591.85 mGy.cm COMPARISON: None available at the time of this dictation. FINDINGS: Lower chest: For findings above the diaphragm, please see CT chest performed same day. Liver: Unremarkable. No focal lesions are seen. Gallbladder and biliary tree: Patient is status post cholecystectomy. Physiologic prominence of the biliary ducts is noted. Pancreas: Unremarkable, no focal lesions. Pancreatic duct measures up to 4 mm of the body. Spleen: Unremarkable. Adrenals: Unremarkable. Kidneys and ureters: Subcentimeter hypodensities are too small to characterize. Bladder: Unremarkable. Reproductive organs: Unremarkable. Bowel: Diverticulosis is seen without diverticulitis. The appendix is normal. Lymph nodes Retroperitoneal: Unremarkable. Pelvic: Unremarkable. Mesenteric: Unremarkable. Peritoneum: Normal. Vessels: Atherosclerotic calcifications are seen. Abdominal wall: Unremarkable. Bones: Unremarkable. IMPRESSION: 1. No CT evidence of pancreatic mass. No acute abnormalities are seen. 2. Patient is status post cholecystectomy. ACT 112: Negative or not required by law. Electronically signed by: Osvaldo Romo M.D. 07/01/2023 7:49 PM Brain MRI 07/01/23 15:21 MRI OF THE BRAIN COMBO CLINICAL HISTORY: Change in mental status. COMPARISON STUDY: No priors. TECHNIQUE: MRI of the brain was performed utilizing various T1 and T2-weighted sequences in the axial, sagittal, and coronal planes. Contrast-enhanced sequences were acquired following the administration of 4.8 cc of Gadavist. FINDINGS: Brain parenchyma: There is age-related involutional change noting moderate subcortical and periventricular microangiopathic disease. There is no hemorrhage or mass effect. There is no restricted diffusion to suggest acute ischemia. No enhancing mass lesion is identified on the postcontrast images. [place]-white matter differentiation is preserved. 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 No extra-axial fluid collection is seen. The cerebellar tonsils are normal in configuration. Ventricles, sulci, and cisterns: Prominent secondary to positional change. Pituitary and sella: Unremarkable. Intracranial vasculature: Normal flow voids are maintained at the skull base. Orbits: The bony orbits are grossly intact. Orbital contents are normal in appearance noting bilateral ocular lens implants. Sinuses and mastoids: There is mucosal thickening within the sphenoid sinuses. The remaining paranasal sinuses and the mastoid air cells are clear. Calvarium: Unremarkable. Cervical cord: Partially visualized cervical spinal cord is normal in morphology and signal intensity. IMPRESSION: No acute intracranial abnormality. ACT 112: Negative or not required by law. Electronically signed by: Basil Lambert M.D. 07/01/2023 8:[address] 07/01/23 15:49 CT chest diagnostic wo con CLINICAL HISTORY: pain, sob TECHNIQUE: Multidetector row helical CT of the chest was performed. Coronal and sagittal reformations were obtained. Automated dose lowering techniques and/or adjustment according to patient size were utilized for this exam. Comparison: None available at the time of this dictation. FINDINGS: Lungs and pleura: Bronchiectasis and interstitial scarring are seen. There is a 4 mm nodule in the right lower lobe (series 4 image 132). Trace pleural fluid is noted. Heart and pericardium: Heart size is normal. No pericardial effusion. Vessels: Mild atherosclerotic changes in the aorta and coronary arteries. Mediastinum and tremayne: Subcentimeter lymph nodes are seen. Chest wall and lower neck: Unremarkable. Abdomen: For findings below the diaphragm, please refer to CT of the abdomen dated the same. Bones: Degenerative changes in the thoracic spine. IMPRESSION: Bronchiectasis and interstitial fibrotic changes are seen. There is trace bilateral pleural effusions. Tiny pulmonary nodules as above. ACT 112: Negative or not required by law. Electronically signed by: Osvaldo Romo M.D. 07/01/2023 7:16 PM Pending Results Patient Have Any Pending Studies at Discharge: No Discharge Instructions Given to Patient (Per Discharging Provider) Please refer to accompanying hospital discharge summary for details. Total Time Total Time Spent Total Time Spent (In Minutes): >30 minutes
== END 2023-07-09 14:39 | disposition home or self-care (01) | DRG 948 ==
LOC: ED 11:42 → SUATTDRO 14:38 → 2N 14:38